=== PATIENT | male | born 1960 | race Caucasian/White ===

== ENCOUNTER 2017-10-13 11:56 | Inpatient (IN) | payer OTHER ==
[~2017-10-13] VITALS: Ht 180.3 cm; Wt 127.9 kg
[2017-10-13] VITALS (8 sets, daily range): BP systolic 99–161; BP diastolic 67–136
--- NOTE | ~2017-10-13 | EKG ---
[address] [address] ELECTROCARDIOGRAM REPORT Name: NELLIBELL BEBO Room #: 247-P ADM IN M.R.#: [id number] Admission: 10/13/17 Attend Phys: Hemant Obrien MD Discharge: Date of : 62 Report #: [id number] THIS REPORT FOR: //name// [facility] ED Test Date: 2017-10-13 Test Time: 11:57:54 Pat Name: BELL AIKEN Department: Room: [facility] Gender: M Machines Technician: jreif : 1960 Requested By: Shannon Chavez Order Number: [id number] MD: Lars Garza Measurements Intervals [place] Rate: 140 P: 63 WY: 208 QRS: 46 QRSD: 159 T: 142 QT: 346 QTc: 528 Interpretive Statements Probable atrial fibrillation with a rapid ventricular response Left bundle branch block Compared to ECG 09/25/2014 18:37:50 Premature ventricular complexes are no longer present Electronically Signed On 10-13-2017 17:21:59 CDT by Lars Garza [email or web address] <ELECTRONICALLY SIGNED> By: Lars Garza MD, [facility] 10/13/17 1721 1157 1157 Lars Garza MD, [facility] /EPI
--- NOTE | ~2017-10-13 | EKG ---
[address] [address] ELECTROCARDIOGRAM REPORT Name: BELL AIKEN Room #: 247- ADM IN M.R.#: [id number] Admission: 10/13/17 Attend Phys: Hemant Obrien MD Discharge: Date of : 62 Report #: [id number] THIS REPORT FOR: //name// [facility] Test Date: 2017-10-14 Test Time: 09:34:12 Pat Name: BELL AIKEN Department: Room: 247 Gender: M Qa Automation Architect: BS : 1960 Requested By: Lars Garza Order Number: [id number] MD: Lars Garza Measurements Intervals [place] Rate: 125 P: 49 WY: 179 QRS: 3 QRSD: 157 T: 136 QT: 395 QTc: 570 Interpretive Statements Sinus tachycardia with atrial premature complexes LBBB Electronically Signed On 10-14-2017 9:48:56 CDT by Lars Garza [email or web address] <ELECTRONICALLY SIGNED> By: Lars Garza MD, [facility] 10/14/17 0948 0934 0934 Lars Garza MD, FAC /EPI
--- NOTE | ~2017-10-13 | 2DMMODE ---
[facility] [address] [address] 2 D/M-MODE ECHOCARDIOGRAM Name: BELL AIKEN Room #: 247-P ADM IN M.R.#: [id number] Admission: 10/13/17 Attend Phys: Hemant Obrien MD Discharge: Date of : 62 Date of Service: 10/14/17 1003 Report #: [id number] THIS REPORT FOR: //name// APPROVED REPORT Study performed: 10/14/2017 08:12:49 EXAM: Comprehensive 2D, Doppler, and color-flow Echocardiogram Patient Location: ICU Room #: [facility] Status: routine BSA: 2.42 BP: 118/73 mmHg Other Information Study Quality: Technically Limited Technically limited study due to body habitus. No IV access for Optison. Indications Congestive Heart Failure Diabetes Atrial Fibrillation Hypertension/HDD Hx of nonischemic cardiomyopathy. 2D Dimensions RVDd: 49.30 mm LVEF(%): 30.79 (>50%) IVSd: 11.43 (7-11mm) LVOT Diam: 23.78 (18-24mm) LVDd: 60.15 mm PWd: 11.05 (7-11mm) Ascending Ao: 32.36 (22-36mm) LVDs: 51.26 (25-40mm) Aortic Root: 35.19 mm IVC: 19.00 mm Blevins's LVEF: 30.79 % Volumes Left Atrial Volume (Systole) Single Plane 4CH: 95.26 mL Single Plane 2CH: 119.12 mL LA ESV Index: 50.00 mL/m2 Aortic Valve AoV Peak Gerald.: 0.97 m/s AO Peak Gr.: 3.78 mmHg LVOT Max P.98 mmHg LVOT Max V: 0.86 m/s [facility] [place] [address] 2 D/M-MODE ECHOCARDIOGRAM Name: CONRADMARCIABELL BASURTO Room #: 247-P ADM IN M.R.#: [id number] Admission: 10/13/17 Attend Phys: Hemant Obrien MD Discharge: Date of : 62 Date of Service: 10/14/17 1003 Report #: [id number] [id number] Vmax: 3.94 cm2 Mitral Valve MV Decel. Time: 100.29 ms MV E Max Gerald.: 1.09 m/s IVRT: 65.74 ms Pulmonary Valve PV Peak Gerald.: 0.80 m/s PV Peak Gr.: 2.55 mmHg Tricuspid Valve TR Peak Gerald.: 2.96 m/s RAP Estimate: 5.00 mmHg TR Peak Gr.: 35.01 mmHg PA Pressure: 40.00 mmHg Left Ventricle Left ventricle is dilated. There is global hypokinesis of the left ventricle. There is normal left ventricular wall thickness. Left ventricular systolic function is moderately decreased. LVEF is 30-35%. Right Ventricle The right ventricle is normal size. Atria Left atrium is severely dilated. Right atrium is severely dilated. Aortic Valve The aortic valve is normal in structure. No aortic regurgitation is present. There is no aortic valvular stenosis. Mitral Valve The mitral valve is normal in structure. Mild to moderate eccentric mitral regurgitation. No evidence of mitral valve stenosis. Tricuspid Valve Calcification present on anterior tricuspid valve leaflet. Mild tricuspid regurgitation. PAP is estimated at 40 mmHg. Pulmonic Valve Pulmonic valve is not well visualized. Great Vessels The aortic root is normal in size. IVC is normal in size and [facility] [address] [place] [address] 2 D/M-MODE ECHOCARDIOGRAM Name: BELL AIKEN Room #: 247-P ADM IN M.R.#: [id number] Admission: 10/13/17 Attend Phys: Hemant Obrien MD Discharge: Date of : 62 Date of Service: 10/14/17 1003 Report #: [id number] collapses >50% with inspiration. Pericardium There is no pericardial effusion. <Conclusion> Left ventricular systolic function is moderately decreased. LVEF is 30-35%. Both atria are severely dilated. The aortic valve is normal in structure. No aortic regurgitation or stenosis The mitral valve is normal in structure. Mild to moderate eccentric mitral regurgitation. Mild tricuspid regurgitation. Calcified tricuspid leaflet. Pulmonary artery pressure of estimated at 40 mmHg. There is no pericardial effusion. <ELECTRONICALLY SIGNED> By: Lars Garza MD, [facility]ACC 10/14/17 1003 1003 1003 Lars Garza MD, FAC /INF
[~2017-10-13 11:56] MED LIST: ALDACTONE25 MG PO; ALDACTONE50 MG PO; ALEVE220 MG PO; AMARYL OR; AMARYL4 MG PO; ASPIR-LOW81 MG PO; ASPIRIN325 PO; ASPIRIN81 M2 PO; ATENOLOL 25 MG25 M1 PO; ATENOLOL 50MG T50 M1 PO; AUGMENTIN 875875 MG PO; BACITRACIN15 GM TOP; C-500500 MG PO; CARDIZEM CD180 MG PO; CARVEDILOL6.25 MG PO; CLOTRIM ANTIFUN15 GM TP; CLOTRIMAZOLE 1%15 G1 TOP; CONSTULOSE10 GM/152 PO; COREG OR; COZAAR 50 MG TA50 M1 PO; COZAAR 50 MG TA50 M2 PO; DILTIAZEM 24HR120 M2 PO; DILTIAZEM HCL60 MG PO; FUROSEMIDE 80 M80 M1 PO; FUROSEMIDE OR; GLUCOPHAGE1000 MG PO; HYDROCERIN CREA1 JAR TOP; LACTULOSE10 GM/15 M PO; LACTULOSE10 GM/152; LACTULOSE20 GM/30 M PO; LASIX 40 MG TAB40 M2 PO; LASIX 40 MG TAB40 MG PO; LEVEMIR100 UNIT/1 SUBQ; LISINOPRIL10 MG PO; LISINOPRIL2.5 MG PO; LISINOPRIL20 MG PO; LOW DOSE ASPIRI81 M1 PO; MAGOX 400400 MG PO; MULTIVITAMINS1 EAC7 PO; NAPROSYN500 M1 PO; NYSTATIN 100,0015 G1 TOP; NYSTATIN15 GM TOP; NYSTATIN15 GM TP; OXYCODONE HCL 55 MG PO; OXYCODONE HCL5 M1 PO; POTASSIUM20; POTASSIUM20 PO; PREDNISONE 10 M10 MG PO; SPIRONOLACTONE25 M1 PO; TESSALON PERLE100 MG PO; TOPROL XL50 MG PO; TORSEMIDE20 MG PO; TRINATE TABLET1 TAB PO; VITAMIN B-1100 M1 PO; VITAMIN C + RO500 MG PO; VITAMINC500 PO; XIFAXAN 200 MG200 M1 PO; XIFAXAN550 M1 PO; XIFAXAN550 MG PO
[2017-10-13 12:59] LABS: HEMATOCRIT 43.8 % (42.0-52.0); HEMOGLOBIN 15.3 gm/dL (14.0-18.0); MCH 32.1 pg (26.0-34.0); MCHC 34.9 g/dL (28.0-37.0); RBC 4.76 mil/uL (4.50-6.00); RDW 15.6 % (10.5-14.5); WBC 3.3 thou/uL (4.0-11.0)
[2017-10-13 13:10] LABS: CALCIUM 8.5 mg/dL (8.5-10.1); CREATININE 1.9 mg/dL (0.7-1.3); POTASSIUM 3.1 mmol/L (3.5-5.1)
[2017-10-13 13:16] LABS: ALBUMIN 2.6 g/dL (3.4-5.0); TOTAL BILIRUBIN 6.2 mg/dL (<0.1-1.0)
[2017-10-13 13:46] LABS: TOTAL PROTEIN 6.8 g/dL (6.4-8.2)
[2017-10-13 14:03] LABS: INR 1.6; PROTIME 16.6 Seconds (9.3-11.4)
[2017-10-14] VITALS (16 sets, daily range): BP systolic 90–121; BP diastolic 55–99
[2017-10-14 06:15] LABS: HEMATOCRIT 41.5 % (42.0-52.0); HEMOGLOBIN 14.3 gm/dL (14.0-18.0); MCHC 34.5 g/dL (28.0-37.0); MCV 92.8 fL (80.0-100.0); RBC 4.47 mil/uL (4.50-6.00); WBC 4.7 thou/uL (4.0-11.0)
[2017-10-14 06:31] LABS: INR 1.7; PROTIME 17.1 Seconds (9.3-11.4)
[2017-10-14 06:37] LABS: ALBUMIN 2.2 g/dL (3.4-5.0); CALCIUM 7.8 mg/dL (8.5-10.1); CREATININE 1.3 mg/dL (0.7-1.3); POTASSIUM 3.6 mmol/L (3.5-5.1); TOTAL BILIRUBIN 4.9 mg/dL (<0.1-1.0); TOTAL PROTEIN 5.9 g/dL (6.4-8.2)
[2017-10-15 04:19] LABS: INR 1.8; PROTIME 18.7 Seconds (9.3-11.4)
[2017-10-15 04:20] LABS: ALBUMIN 2.3 g/dL (3.4-5.0); DIRECT BILIRUBIN 2.2 mg/dL (<0.1-0.3); TOTAL BILIRUBIN 5.1 mg/dL (<0.1-1.0); TOTAL PROTEIN 6.2 g/dL (6.4-8.2)
[2017-10-15 04:45] VITALS: BP 90/61
[2017-10-15 07:15] VITALS: BP 104/57
[2017-10-15] MEDS ORDERED: XIFAXAN550 MG PO (10:47)
[2017-10-15] MEDS ORDERED: CARDIZEM CD 18180 M3 PO (10:47)
[2017-10-15] MEDS ORDERED: LOPRESSOR50 PO (10:47)
[2017-10-15 11:15] VITALS: BP 120/55
[2017-10-15 14:48] VITALS: BP 120/55
== END 2017-10-15 15:26 | disposition home or self-care (01) | DRG 871 ==
LOC: ER 11:56 → EROBS 15:07 → ICU 15:07 → 2N 10-14 15:50 → ENTRNSPT 10-15 15:16 → EDTRNSPTSTS 10-15 15:18 → 2N 10-15 15:26
PROVIDERS: Hospitalist; Internal Medicine Gastroenterology; Student in an Organized Health Care Education/Training Program
DX: A41.9 Sepsis, unspecified organism (principal); E43 Unspecified severe protein-calorie malnutrition; K72.00 Acute and subacute hepatic failure without coma; I85.10 Secondary esophageal varices without bleeding; N17.9 Acute kidney failure, unspecified; K76.6 Portal hypertension; N13.30 Unspecified hydronephrosis; I47.1 Supraventricular tachycardia; E11.9 Type 2 diabetes mellitus without complications; I11.0 Hypertensive heart disease with heart failure; B18.2 Chronic viral hepatitis C; I48.0 Paroxysmal atrial fibrillation; K80.20 Calculus of gallbladder without cholecystitis without obstruction; E78.5 Hyperlipidemia, unspecified; K70.31 Alcoholic cirrhosis of liver with ascites; I25.5 Ischemic cardiomyopathy; R59.0 Localized enlarged lymph nodes; I50.9 Heart failure, unspecified; Z79.4 Long term (current) use of insulin; Z68.39 Body mass index [BMI] 39.0-39.9, adult; Z79.82 Long term (current) use of aspirin; Z79.899 Other long term (current) drug therapy; Z88.8 Allergy status to other drugs, medicaments and biological substances
CPT/HCPCS: 10078; 10081

== ENCOUNTER 2019-01-01 15:53 | Inpatient (IN) | payer OTHER ==
[2019-01-01] VITALS (8 sets, daily range): BP systolic 99–117; BP diastolic 43–77
[~2019-01-01] VITALS: Ht 177.8 cm; Wt 104.3 kg
[~2019-01-01 15:53] MED LIST changes: +CARDIZEM CD 18180 M3 PO; +LOPRESSOR50 PO
[2019-01-01 16:38] LABS: HEMATOCRIT 41.5 % (42.0-52.0); HEMOGLOBIN 13.9 gm/dL (14.0-18.0); MCH 33.9 pg (26.0-34.0); MCHC 33.6 g/dL (28.0-37.0); MCV 100.9 fL (80.0-100.0); PLATELET COUNT 152 thou/uL (150-400); RBC 4.11 mil/uL (4.50-6.00); RDW 17.2 % (10.5-14.5); WBC 12.2 thou/uL (4.0-11.0)
[2019-01-01 16:44] LABS: ANION GAP 10 mmol/L (7-16); BUN 18 mg/dL (7-18); CALCIUM 8.5 mg/dL (8.5-10.1); CHLORIDE 89 mmol/L (98-107); CO2 29 mmol/L (21-32); CREATININE 1.5 mg/dL (0.7-1.3); GLUCOSE 244 mg/dL (74-106); POTASSIUM 3.1 mmol/L (3.5-5.1); SODIUM 128 mmol/L (136-145)
[2019-01-01 16:53] LABS: ALBUMIN 1.8 g/dL (3.4-5.0); DIRECT BILIRUBIN 5.6 mg/dL (<0.1-0.3); SGOT 52 U/L (15-37); SGPT 22 U/L (30-65); TOTAL BILIRUBIN 9.4 mg/dL (<0.1-1.0); TOTAL PROTEIN 7.4 g/dL (6.4-8.2); TROPONIN-I <0.06 ng/mL (<0.06)
[2019-01-01 16:55] LABS: MAGNESIUM 0.9 mg/dL (1.8-2.4)
[2019-01-01 16:56] LABS: PROTIME 20.4 Seconds (9.3-11.4)
[2019-01-01 17:15] LABS: ABSOLUTE NEUTROPHILS 11.2 thou/uL (1.4-8.2); ANISOCYTOSIS SLIGHT; POIKILOCYTOSIS SLIGHT
[2019-01-01 17:16] LABS: TOXIC GRANULATION SLIGHT
[2019-01-01] MEDS ORDERED: NEURONTIN100 MG PO (19:28)
[2019-01-01] MEDS ORDERED: TOPROL XL100 MG PO (19:29)
[2019-01-01] MEDS ORDERED: ZANTAC 150MG T150 M1 PO (19:29)
--- NOTE | 2019-01-01 20:14 | NUR ---
VAT CONSULTED FOR A PICC IN THE ER FOR THIS PT FOR POSS SEPSIS AND CARDIAC ISSUES. A 5FRTLPICC PLACED IN [facility] AND CXR REVEALED TIP AT THE [facility] AND RELEASED TO RN FOR USE. PLEASE SEE INSERTION NI FOR DETAILS
[2019-01-02] VITALS (61 sets, daily range): BP systolic 79–124; BP diastolic 36–78
[2019-01-02 01:22] LABS: MAGNESIUM 1.6 mg/dL (1.8-2.4); POTASSIUM 3.1 mmol/L (3.5-5.1)
[2019-01-02 06:18] LABS: HEMATOCRIT 30.6 % (42.0-52.0); MCH 34.6 pg (26.0-34.0); MCHC 33.9 g/dL (28.0-37.0); MCV 102.1 fL (80.0-100.0); RBC 2.99 mil/uL (4.50-6.00); RDW 17.4 % (10.5-14.5); WBC 9.3 thou/uL (4.0-11.0)
[2019-01-02 06:21] LABS: INR 1.9; PROTIME 19.3 Seconds (9.3-11.4)
[2019-01-02 06:26] LABS: ALBUMIN 1.4 g/dL (3.4-5.0); ANION GAP 3 mmol/L (7-16); BUN 15 mg/dL (7-18); CALCIUM 7.5 mg/dL (8.5-10.1); CHLORIDE 94 mmol/L (98-107); CO2 33 mmol/L (21-32); CREATININE 1.1 mg/dL (0.7-1.3); GLUCOSE 204 mg/dL (74-106); POTASSIUM 3.1 mmol/L (3.5-5.1); SGOT 34 U/L (15-37); SGPT 11 U/L (30-65); SODIUM 130 mmol/L (136-145); TOTAL BILIRUBIN 9.3 mg/dL (<0.1-1.0); TOTAL PROTEIN 5.5 g/dL (6.4-8.2); TROPONIN-I <0.06 ng/mL (<0.06)
[2019-01-02 06:34] LABS: HEMOGLOBIN 10.4 gm/dL (14.0-18.0)
--- NOTE | 2019-01-02 09:26 | EKG ---
[address] [place] [address] ELECTROCARDIOGRAM REPORT Name: BELL AIKEN Room #: 238-P ADM IN M.R.#: [id number] Admission: 01/01/19 Attend Phys: Ra Bradford MD Discharge: Date of : 62 Report #: [id number] THIS REPORT FOR: //name// [facility] ED Test Date: 2019-01-01 Test Time: 16:06:58 Pat Name: BELL AIKEN Department: Room: 238 Gender: M Remote Sensing Analyst: : 1960 Requested By: Madhu De Guzman Order Number: [id number] MD: Lars Garza Measurements Intervals [place] Rate: 167 P: [place]: QRS: 6 QRSD: 153 T: 149 QT: 324 QTc: 541 Interpretive Statements Atrial fibrillation with a rapid ventricular response Left bundle branch block No previous ECGs available for comparison Electronically Signed On 01-02-2019 9:26:27 CDT by Lars Garza [email or web address] <ELECTRONICALLY SIGNED> By: Lars Garza MD, [facility] 01/02/19 0926 1606 1606 Lars Garza MD, [facility]ACC /EPI
--- NOTE | 2019-01-02 09:27 | EKG ---
[address] [address] ELECTROCARDIOGRAM REPORT Name: BELL AIKEN Room #: 238-P ADM IN M.R.#: [id number] Admission: 01/01/19 Attend Phys: Ra Bradford MD Discharge: Date of : 62 Report #: [id number] THIS REPORT FOR: //name// [facility] ED Test Date: 2019-01-01 Test Time: 16:39:34 Pat Name: BELL AIKEN Department: Room: 238 P Gender: M Marketing Education Teacher: : 1960 Requested By: Madhu De Guzman Order Number: [id number] MD: Lars Garza Measurements Intervals [place] Rate: 171 P: [place]: QRS: 15 QRSD: 158 T: 179 QT: 285 QTc: 481 Interpretive Statements Atrial fibrillation with a rapid ventricular response Left bundle-branch block Compared to ECG 10/14/2017 09:34:12 No previous ECGs available for comparison Electronically Signed On 01-02-2019 9:26:49 CDT by Lars Garza [email or web address] <ELECTRONICALLY SIGNED> By: Lars Garza MD, [facility] 01/02/19 0926 1639 1639 Lars Garza MD, [facility] /EPI
--- NOTE | 2019-01-02 09:35 | 2DMMODE ---
[facility] [address] [place] [address] 2 D/M-MODE ECHOCARDIOGRAM Name: BELL AIKEN Room #: 238-P ADM IN M.R.#: [id number] Admission: 01/01/19 Attend Phys: Ra Bradford Discharge: Date of : 62 Report #: [id number] THIS REPORT FOR: //name// APPROVED REPORT Study performed: 01/02/2019 08:03:24 EXAM: Comprehensive 2D, Doppler, and color-flow Echocardiogram Patient Location: Bedside Room #: 238 Status: routine BSA: 2.37 HR: 128 bpm BP: 108/67 mmHg Other Information Study Quality: Technically Difficult Indications Congestive Heart Failure Diabetes Cardiomyopathy Hypertension/HDD Echo Enhancing Agent Indication: Endocardial border delineation Agent(s) / Amount(s) Used: Optison 3 cc 2D Dimensions RVDd: 39.14 mm IVSd: 9.24 (7-11mm) LVOT Diam: 20.04 (18-24mm) LVDd: 52.11 mm PWd: 10.30 (7-11mm) Ascending Ao: 30.95 (22-36mm) LVDs: 49.17 (25-40mm) Aortic Root: 33.29 mm IVC: 19.00 mm Volumes Left Atrial Volume (Systole) Single Plane 4CH: 68.31 mL Single Plane 2CH: 120.25 mL LA ESV Index: 41.00 mL/m2 Aortic Valve AoV Peak Gerald.: 1.52 m/s AO Peak Gr.: 9.22 mmHg LVOT Max P.37 mmHg [facility] [address] [place] [address] 2 D/M-MODE ECHOCARDIOGRAM Name: BELL AIKEN Room #: 238-P [facility] IN [facility]#: [id number] Admission: 01/01/19 Attend Phys: Ra Bradford Discharge: Date of : 62 Report #: [id number] LVOT Max V: 1.16 m/s GEORGE Vmax: 2.41 cm2 Mitral Valve MV Decel. Time: 156.18 ms MV E Max Gerald.: 1.37 m/s IVRT: 41.52 ms Pulmonary Valve PV Peak Gerald.: 0.95 m/s PV Peak Gr.: 3.61 mmHg Tricuspid Valve RAP Estimate: 5.00 mmHg Left Ventricle Left ventricle is mildly dilated. There is normal left ventricular wall thickness. Left ventricular systolic function is moderately decreased. LVEF is 35%. This study is not technically sufficient to allow evaluation of the LV diastolic function due to atrial fibrillation. Right Ventricle Right ventricle is at the upper limits of normal. The right ventricular systolic function is normal. Atria Left atrium is severely dilated. Right atrium is mildly dilated. Aortic Valve The aortic valve is normal in structure. No aortic regurgitation is present. There is no aortic valvular stenosis. Mitral Valve The mitral valve is normal in structure. Mild to moderate eccentric mitral regurgitation. No evidence of mitral valve stenosis. Tricuspid Valve Calciication present on anterior tricuspid valve leaflet. Trace tricuspid regurgitation. Unable to assess PA pressure. Pulmonic Valve The pulmonary valve is normal in structure. There is no pulmonic valvular regurgitation. [facility] [address] [address] 2 D/M-MODE ECHOCARDIOGRAM Name: BELL AIKEN Room #: 238-P [facility] IN ..#: [id number] Admission: 01/01/19 Attend Phys: Ra Bradford Discharge: Date of : 62 Report #: [id number] Great Vessels The aortic root is normal in size. IVC is normal in size and collapses >50% with inspiration. Pericardium There is no pericardial effusion. <Conclusion> Left ventricular systolic function is moderately decreased. LVEF is 35%. Both atria are dilated. The aortic valve is normal in structure. No aortic regurgitation or stenosis. The mitral valve is normal in structure. Mild to moderate eccentric mitral regurgitation. Unable to assess PA pressure. There is no pericardial effusion. Similar to October 2017 <ELECTRONICALLY SIGNED> By: Lars Garza MD, [facility] 01/02/1935 0935 Lars Garza MD, FACC /INF
[2019-01-02 12:29] LABS: BE(vivo) 1.9 mmol/L (-2 to +3); PCO2 44.4 mmHg (35.0-45.0); PO2 82.6 mmHg (80.0-100.0); pH 7.402 (7.360-7.450); sO2 96.1 % (92.0-98.0)
--- NOTE | 2019-01-02 15:52 | NUR ---
met with patient who resides alone in [employer]. He has new PCP but cannot recall her name. He reports she is located in [place] and new to him but believes she is listed on his insurance card. He reports recently purchased a walker. He rec disability. Reports he fell at home and too weak to get up from seated position on floor. Patient called 911. He reports weakness likly due to lack of excercise. He has a GI phys Thi quiroga [phone] who he saw last year. Patient anticipates dc home from [facility].
--- NOTE | 2019-01-02 17:08 | EKG ---
[address] [place] [address] ELECTROCARDIOGRAM REPORT Name: BELL AIKEN Room #: 238- ADM IN M.R.#: [id number] Admission: 01/01/19 Attend Phys: Ra Bradford MD Discharge: Date of : 62 Report #: [id number] THIS REPORT FOR: //name// [facility] Test Date: 2019-01-02 Test Time: 07:35:07 Pat Name: BELL AIKEN Department: Room: 238 P Gender: M Pricing Supervisor: Maryana [place] : 1960 Requested By: Eugene Aguilar Order Number: [id number] MD: Lars Garza Measurements Intervals [place] Rate: 133 P: 0 DE: 41 QRS: 24 QRSD: 163 T: 149 QT: 370 QTc: 551 Interpretive Statements Probable atrial flutter with a rapid ventricular response Left bundle branch block Compared to ECG 10/14/2017 09:34:12 No significant changes Electronically Signed On 01-02-2019 17:08:39 CDT by Lars Garza [email or web address] <ELECTRONICALLY SIGNED> By: Lars Garza MD, [facility] 01/02/19 1708 0735 0735 Lars Garza MD, [facility] /EPI
[2019-01-03] VITALS (18 sets, daily range): BP systolic 86–111; BP diastolic 43–74
[2019-01-03 06:22] LABS: ALBUMIN 1.8 g/dL (3.4-5.0); CALCIUM 7.2 mg/dL (8.5-10.1); CREATININE 1.5 mg/dL (0.7-1.3); MAGNESIUM 1.7 mg/dL (1.8-2.4); POTASSIUM 3.4 mmol/L (3.5-5.1); TOTAL PROTEIN 5.5 g/dL (6.4-8.2)
--- NOTE | 2019-01-03 08:04 | NUR ---
Pt up to bs commode during noc-loose stools/voids in toilet. Amniona level down this am. Map >60. levophed off. and Atrial tachycardia HR below 110. Pt states he feels better. Pt progressing toward goals. Cont plan of care
--- NOTE | 2019-01-03 09:12 | NUR ---
Blood sugars remain high w/ Lantus 10u hs and moderate dose SSC ac. SSC increased to high dose per protocol. Pt on 2gm BRIDGET diet. Will ask primary for carb control diet and whether lantus dose should be adjusted as well. Pt states he does not need to see an Data Capture Clerk because when he leaves here he is going to eat/drink what he wants. Pt states his sugars are always in the 300's.
--- NOTE | 2019-01-03 13:56 | EKG ---
[address] [address] ELECTROCARDIOGRAM REPORT Name: BELL AIKEN Room #: 238-P ADM IN M.R.#: [id number] Admission: 01/01/19 Attend Phys: Ra Bradford MD Discharge: Date of : 62 Report #: [id number] THIS REPORT FOR: //name// [facility] Test Date: 2019-01-03 Test Time: 07:32:42 Pat Name: BELL AIKEN Department: Room: 238 P Gender: M Splash Line Operator: JAIMEE : 1960 Requested By: Lars Garza Order Number: [id number] MD: Geronimo Thompson Measurements Intervals [place] Rate: 108 P: [place]: QRS: -9 QRSD: 175 T: 164 QT: 440 QTc: 590 Interpretive Statements Atrial flutter with predominant 2:1 AV block LBBB Compared to ECG 01/02/2019 07:35:07 Electronically Signed On 01-03-2019 13:56:05 CDT by Geronimo Thompson [email or web address] <ELECTRONICALLY SIGNED> By: Geronimo Thompson MD 01/03/19 1356 1 1 Geronimo Thompson MD /EDYTA
[2019-01-03 14:38] LABS: POTASSIUM 3.6 mmol/L (3.5-5.1)
--- NOTE | 2019-01-03 18:23 | NUR ---
Blood sugars better this evening, down to 171 pre dinner. No critical care tele bed available at this time for pt transfer. PT/OT both worked with patient today. Pt up in chair most of day, transfer with one assist. Slowly making progress with improved strength and endurance.
[2019-01-04] VITALS (12 sets, daily range): BP systolic 91–137; BP diastolic 38–112
[2019-01-04 06:19] LABS: ALBUMIN 2.1 g/dL (3.4-5.0); CALCIUM 7.3 mg/dL (8.5-10.1); CREATININE 1.8 mg/dL (0.7-1.3); MAGNESIUM 1.7 mg/dL (1.8-2.4); POTASSIUM 3.4 mmol/L (3.5-5.1); TOTAL PROTEIN 5.9 g/dL (6.4-8.2)
--- NOTE | 2019-01-04 10:51 | NUR ---
Nutrition: Pt admitted with sepsis, afib, RVR. Hx liver disease TIPS, NIDDM, CHF, noncompliance. Seen per sepsis Dx. RN added carb controlled to diet order and insulin increased to high dose plus lantus this am due to hyperglycemia. BG now 133-233. Also on 2 gm Na diet with liver hx. Pt reported to RN that BG run in 300s at home and plans to eat/drink whatever he wants at home. Excellent appetite, 100% intake of meals. Plan to transfer out of ICU today. Physician has documented severe malnutrition-will defer. Pt reports stable weights around 280#. Most recent weight of 229# is error. RD will remain available as needed but place as low risk.
--- NOTE | 2019-01-04 11:59 | NUR ---
HR down to 40's while sleeping after Lopressor, Cardizem, and digoxin given this am. BP stable. Pt denies complaints.
--- NOTE | 2019-01-04 13:49 | NUR ---
Dr. Garza's office called and notified for sustained HR 42. PT lynne well. BP 90's. Pt states he just feels wiped out.
--- NOTE | 2019-01-04 14:10 | NUR ---
Serena GUERRA from Dr. Garza's office returned call. Update given. Digoxin dc'd. Will hold evening dose Lopressor. Normal Saline 250ml slow IV bolus. Will hold spironolactone.
--- NOTE | 2019-01-04 15:00 | NUR ---
Pt attempting to get to bedside commode for BM. Chair alarm activated. Assisted to bedside commode but too late. Pt states lactulose make his stools come on quick. Sweat pants soiled. Bath given. Gown changed.
--- NOTE | 2019-01-04 17:36 | EKG ---
[address] [address] ELECTROCARDIOGRAM REPORT Name: BELL AIKEN Room #: 238-P ADM IN M.R.#: [id number] Admission: 01/01/19 Attend Phys: Ra Bradford MD Discharge: Date of : 62 Report #: [id number] THIS REPORT FOR: //name// [facility] Test Date: 2019-01-04 Test Time: 08:37:03 Pat Name: BELL AIKEN Department: Room: 238 P Gender: M Associate Buyer: JAIMEE : 1960 Requested By: Katrina Palencia Order Number: [id number] MD: Lars Garza Measurements Intervals [place] Rate: 121 P: [place]: QRS: 34 QRSD: 161 T: 128 QT: 427 QTc: 606 Interpretive Statements Atrial flutter Left bundle branch block Compared to ECG 01/03/2019 07:32:42 No significant change was found Electronically Signed On 01-04-2019 17:35:57 CDT by Lars Garza [email or web address] <ELECTRONICALLY SIGNED> By: Lars Garza MD, [facility] 01/04/19 1735 0837 0837 Lars Garza MD, FAC /EPI
--- NOTE | 2019-01-04 17:52 | NUR ---
HR back up to 60-80s while awake. Afib. BP stable 90's-110 Systolic.
--- NOTE | 2019-01-04 19:06 | NUR ---
Critical Care Tele bed available on 3W. Pt to transfer to room 352 once clean. Report called to Aurelio RN on 3W. Pt packed up and anxious to transfer to new room with private bathroom. Cell phone charged for patient and returned. Update to Tammy RODRIGUEZ who will transport pt to 3W when ready.
--- NOTE | 2019-01-04 20:28 | NUR ---
PT REMAIN STABLE WHILE IN ICU. TRANSFER TO ROOM 364 ACCOMPANIED BY ME. ALL BELONGING ARE SENT WITH PT.
[2019-01-05 00:04] VITALS: BP 93/55
--- NOTE | 2019-01-05 04:21 | NUR ---
PT MAKING PROGRESS TOWARDS GOALS. PT UP TO TOILET ON ROOM AIR. NO REPORTS OF SOA WITH ACTIVITY. LUNGS DIMINISHED BUT CLEAR. NON-PRODUCTIVE COUGH.
[2019-01-05 05:10] VITALS: BP 101/61
[2019-01-05 06:20] LABS: MAGNESIUM 1.6 mg/dL (1.8-2.4); POTASSIUM 3.7 mmol/L (3.5-5.1)
[2019-01-05 07:35] LABS: CALCIUM 7.4 mg/dL (8.5-10.1); CREATININE 1.8 mg/dL (0.7-1.3); POTASSIUM 3.7 mmol/L (3.5-5.1)
[2019-01-05 08:03] VITALS: BP 101/61
[2019-01-05 15:38] VITALS: BP 89/56
--- NOTE | 2019-01-05 15:54 | NUR ---
SW reviewed chart and spoke with nursing and attending physician. Pt was transferred to 3W from CCU and is progressing towards goals for discharge. Discharge is anticipated for tomorrow. Therapy recommends post-acute placement. SW met with pt at bedside to discuss discharge plan. Pt states he will return home and does not want to go to SNF/Rehab. Pt is agreeable with HH if needed. SW is following to assist as needed with discharge planning.
[2019-01-05 19:27] VITALS: BP 90/54
--- NOTE | 2019-01-05 19:35 | NUR ---
PT UP TO CHAIR MOST OF DAY, ON 1 L NC. PT AOX4. APPROPRIATE WITH THIS RN.
[2019-01-06 03:00] VITALS: BP 98/72
--- NOTE | 2019-01-06 04:17 | NUR ---
ASSUMED CARE OF PATIENT AT 1900. VSS, AFEBRILE. UP TO CHAIR UNTIL READY FOR BED. IV TEAM TO FLOOR AND ADMINISTERED ACTIVASE. NO RESULTS, GIVEN ONCE MORE. FLUSHES WELL AND DRAWING BLOOD. RESTLESS, COUGHING AND UNCOMFORTABLE THROUGH THE NIGHT. THROAT LOZENGES ORDERED. SOME RELIEF NOTED. WORKING TOWARDS POC GOALS.
[2019-01-06 08:09] VITALS: BP 99/48
--- NOTE | 2019-01-06 15:36 | NUR ---
ASSUMED CARE OF PATIENT AT 0700. VSS. CONTROLLED AFIB. ALERT AND ORIENTED X 4. PATIENT HAS NONPRODUCTIVE COUGH. PATIENT TOLERATING IV ANTIBIOTICS WELL. PATIENT HAS NOT REPORTED ANY PAIN. CONTINUING TO MONITOR AND ANTICIPATING DISCHARGE IN NEAR FUTURE.
--- NOTE | 2019-01-06 15:42 | NUR ---
DAPHNE reviewed chart and spoke with nursing and attending physician. Pulmonology consult ordered today. Pt may need a bronch. DAPHNE met with pt at bedside to discuss discharge plan. Pt is agreeable with services. Pt states his PCP is in [place] and he has an appt scheduled on 01/30. Pt does not know the name of his PCP. No preference of HH provider. SW contacted admissions at [facility] and [facility], who both do not accept pt's insurance. sr. merchandise planner to fax referral to [facility]. Possible weekend discharge. DAPHNE is following to assist as needed with discharge planning.
--- NOTE | 2019-01-06 16:04 | NUR ---
DISCHARGE PLANNING. HOME HEALTH RECOMMENDED AT DISCHARGE. REFERRAL FA[facility]ED TO [facility]. CALL PLACED TO [facility], SPOKE WITH FREDDIE. VERIFIED [facility] DOES CONTRACT WITH PATIENTS PROVIDER. FREDDIE TO HAVE INTAKE REVIEW PATIENT REFERRAL AND NOTIFY CM.
[2019-01-06 16:06] VITALS: BP 96/54
--- NOTE | 2019-01-06 18:42 | NUR ---
TRANSFERRED PATIENT TO 4W AT APPROX 1840. REPORT GIVEN TO 4W RN AT APPROX 1830. VSS. ROOM AIR. ALERT AND ORIENTED X4. BELONGINGS SENT WITH PATIENT.
--- NOTE | 2019-01-06 19:32 | NUR ---
Patient transfered to this unit at 1835. Patient welcomed to the unit, introduced to staff. Patient fell asleep immediately after arrival to this unit. He is resting. comfortably with his eyes closed. On-coming nurse, MICHAEL Dick recieved report from this nurse.
[2019-01-06 20:20] VITALS: BP 100/60
[2019-01-07 08:00] VITALS: BP 116/72
[2019-01-07] MEDS ORDERED: CARDIZEM CD 18180 M3 PO (14:01)
[2019-01-07] MEDS ORDERED: PREDNISONE 20 M20 M1 PO (14:01)
[2019-01-07] MEDS ORDERED: AUGMENTIN 875-1 EACH PO (14:06)
[2019-01-07 14:57] VITALS: BP 116/72
--- NOTE | 2019-01-07 16:26 | NUR ---
Assumed pt care at 7am.Assessment completed.vss.Pt in bed very anxious about dc home today.He said has been hospitalized for the past 5 day and would like to dc home today after lunch.Pt tolerated meds and diet.Dr Bhatia and ehsan here okay pt to dc home but wanted Dr Palencia to finalized dc order.Dr Palencia notified and dc order noted.Dc summary compile and reviewed with pt.Picc line dc'd.At 1615,pt dc per wc accompanied by combat systems operator after pt called yellow [employer] for ride home.[facility] and given to pt prior to dc home.
== END 2019-01-07 16:33 | disposition home or self-care (01) | DRG 871 ==
LOC: ER 15:53 → EROBS 18:01 → ICU 18:01 → 3W 01-04 20:35 → 4W 01-06 18:14
PROVIDERS: Emergency Medicine; Hospitalist; Internal Medicine; Nurse Practitioner Acute Care; ADMIT Internal Medicine
DX: A41.50 Gram-negative sepsis, unspecified (principal); E43 Unspecified severe protein-calorie malnutrition; J15.6 Pneumonia due to other Gram-negative bacteria; I42.8 Other cardiomyopathies; E87.1 Hypo-osmolality and hyponatremia; N17.9 Acute kidney failure, unspecified; I47.1 Supraventricular tachycardia; R65.20 Severe sepsis without septic shock; E87.6 Hypokalemia; K74.60 Unspecified cirrhosis of liver; I50.9 Heart failure, unspecified; I95.9 Hypotension, unspecified; E83.42 Hypomagnesemia; F17.220 Nicotine dependence, chewing tobacco, uncomplicated; R59.0 Localized enlarged lymph nodes; I48.0 Paroxysmal atrial fibrillation; K72.90 Hepatic failure, unspecified without coma; Z60.2 Problems related to living alone; R91.1 Solitary pulmonary nodule; E11.65 Type 2 diabetes mellitus with hyperglycemia; D53.9 Nutritional anemia, unspecified; E83.51 Hypocalcemia; D86.9 Sarcoidosis, unspecified; Z91.14 Patient's other noncompliance with medication regimen; Z95.810 Presence of automatic (implantable) cardiac defibrillator; Z88.6 Allergy status to analgesic agent; Z88.8 Allergy status to other drugs, medicaments and biological substances; Z68.33 Body mass index [BMI] 33.0-33.9, adult; Z71.6 Tobacco abuse counseling
CPT/HCPCS: 10047; 10078; 10779; 10879; 27000

== ENCOUNTER 2019-01-11 08:25 | Inpatient (IN) | payer OTHER ==
[~2019-01-11] VITALS: Ht 177.8 cm; Wt 139.5 kg
[2019-01-11 08:25] VITALS: BP 118/67
[~2019-01-11 08:25] MED LIST changes: +AUGMENTIN 875-1 EACH PO; +NEURONTIN100 MG PO; +PREDNISONE 20 M20 M1 PO; +TOPROL XL100 MG PO; +ZANTAC 150MG T150 M1 PO
[2019-01-11 09:02] LABS: ABSOLUTE NEUTROPHILS 11.3 thou/uL (1.4-8.2); BASOPHILS 0.6 % (0.0-2.0); EOSINOPHILS 0.5 % (0.0-3.0); HEMATOCRIT 33.7 % (42.0-52.0); LYMPHOCYTES 2.4 % (24.0-44.0); MCH 34.6 pg (26.0-34.0); MCHC 32.6 g/dL (28.0-37.0); MCV 106.1 fL (80.0-100.0); PLATELET COUNT 122 thou/uL (150-400); POLYS 91.5 % (36.0-66.0); RBC 3.17 mil/uL (4.50-6.00); RDW 20.4 % (10.5-14.5); WBC 12.3 thou/uL (4.0-11.0)
[2019-01-11 09:13] LABS: CALCIUM 9.3 mg/dL (8.5-10.1); CREATININE 0.9 mg/dL (0.7-1.3); POTASSIUM 4.2 mmol/L (3.5-5.1)
[2019-01-11 09:14] LABS: INR 2.2; PROTIME 22.7 Seconds (9.3-11.4)
[2019-01-11 09:32] LABS: ALBUMIN 2.2 g/dL (3.4-5.0); DIRECT BILIRUBIN 9.3 mg/dL (<0.1-0.3); TOTAL PROTEIN 6.3 g/dL (6.4-8.2)
[2019-01-11 09:34] LABS: TOTAL BILIRUBIN 14.1 mg/dL (<0.1-1.0)
[2019-01-11 10:04] LABS: ANISOCYTOSIS 2+; MACROCYTES 1+; PLATELET ESTIMATE NORMAL
[2019-01-11 11:06] LABS: URINE BILIRUBIN 3+ (Negative); URINE BLOOD 2+ (Negative); URINE CLARITY CLEAR; URINE GLUCOSE-RANDOM* 1+ (Negative); URINE KETONES NEGATIVE (Negative); URINE LEUKOCYTES-REFLEX TRACE (Negative); URINE NITRITE-REFLEX NEGATIVE (Negative); URINE PROTEIN (DIPSTICK) TRACE (Negative); URINE SPECIFIC GRAVITY 1.025 (1.005-1.035); URINE UROBILINOGEN 0.2 E.U./dl (0.2-1.0)
[2019-01-11 11:08] LABS: ICTOTEST (BILI CONFIRMATORY) Positive (Negative); URINE COLOR DARK YELLOW
[2019-01-11 11:19] LABS: CRYSTALS None Seen /LPF (None Seen); SQUAMOUS None Seen /LPF (0-3)
[2019-01-11 11:20] LABS: URINE RBC 3-10 Few /HPF (0-2)
[2019-01-11 11:23] LABS: CASTS None Seen /LPF (None Seen); YEAST-REFLEX Present (None Seen)
[2019-01-11 13:09] VITALS: BP 104/69
[2019-01-11 13:31] LABS: AMP/METHAMP Negative (Negative); BARBITURATES Negative (Negative); BENZODIAZEPINES Negative (Negative); COCAINE Negative (Negative); METHADONE Negative (Negative); OPIATES Negative (Negative); PCP Negative (Negative)
--- NOTE | 2019-01-11 13:55 | EKG ---
[address] [address] ELECTROCARDIOGRAM REPORT Name: NELLIBELL BEBO Room #: 170-11 ADM IN M.R.#: [id number] Admission: 01/11/19 Attend Phys: Porfirio Abel MD Discharge: Date of : 62 Report #: [id number] THIS REPORT FOR: //name// [facility] ED Test Date: 2019-01-11 Test Time: 08:55:16 Pat Name: BELL AIKEN Department: Room: 170 Gender: M University Archivist: ESHEETS : 1960 Requested By: Madhu De Guzman Order Number: [id number] MD: Geronimo Thompson Measurements Intervals [place] Rate: 139 P: 80 DE: 55 QRS: 229 QRSD: 180 T: 102 QT: 357 QTc: 543 Interpretive Statements Atrial flutter with LBBB Electronically Signed On 01-11-2019 13:55:24 CDT by Geronimo Thompson [email or web address] <ELECTRONICALLY SIGNED> By: Geronimo Thompson MD 01/11/19 1355 0855 0855 MD MAXIMILIANO Duval
[2019-01-11 14:09] VITALS: BP 131/80
[2019-01-11 15:32] VITALS: BP 136/112
--- NOTE | 2019-01-11 16:13 | NUR ---
TO UNIT BY NICANOR FROM [place], REPORT FROM MICHAEL LAWRENCE. AAOX4. CRUDE HUMOR. ST PER TELE. HAND CASTED. ORIENTED TO UNIT. FALL PRECAUTIONS INITIATED. WILL CONTINUE TO MONITOR CLOSELY.
[2019-01-11 19:49] VITALS: BP 90/64
[2019-01-12 00:01] VITALS: BP 87/54
[2019-01-12 00:08] LABS: GLYCOHEMOGLOBIN (HGB A1C) 7.4 % (4.8-5.6)
[2019-01-12 04:44] VITALS: BP 83/53
[2019-01-12 05:26] LABS: ABSOLUTE NEUTROPHILS 6.3 thou/uL (1.4-8.2); BASOPHILS 0.5 % (0.0-2.0); EOSINOPHILS 3.4 % (0.0-3.0); HEMATOCRIT 32.4 % (42.0-52.0); HEMOGLOBIN 10.7 gm/dL (14.0-18.0); LYMPHOCYTES 7.1 % (24.0-44.0); MCH 34.8 pg (26.0-34.0); MCHC 33.1 g/dL (28.0-37.0); MCV 105.1 fL (80.0-100.0); MONOCYTES 8.3 % (1.0-8.0); PLATELET COUNT 133 thou/uL (150-400); POLYS 80.7 % (36.0-66.0); RBC 3.08 mil/uL (4.50-6.00); RDW 19.9 % (10.5-14.5); WBC 7.8 thou/uL (4.0-11.0)
[2019-01-12 05:54] LABS: CALCIUM 8.3 mg/dL (8.5-10.1); CREATININE 0.9 mg/dL (0.7-1.3); POTASSIUM 4.1 mmol/L (3.5-5.1)
--- NOTE | 2019-01-12 06:05 | NUR ---
PATIENTS CARE WAS ASSUMED AT SHIFT CHANGE. PATIENT WAS ASSESSED AND MEDS WERE PASSED. HORLY ROUNDING WAS DONE. THE BED ALARM IS ON. THE BED IS IN A LOW AND LOCKED POSITION. PATIENT IS ON STAND BY ASSESS. PATIENT BELIEVES HE IS GOING FOR AN EGD TODAY. PATIENT HAS BEEN NPO AND NO ORDER WRITTEN AND NO CONSENT TO SIGN OF NOW,
[2019-01-12 06:29] LABS: FOLIC ACID 4.5 ng/mL (8.6-58.9); TSH 4.771 uIU/mL (0.358-3.740)
[2019-01-12 08:09] VITALS: BP 105/69
--- NOTE | 2019-01-12 08:50 | EKG ---
[address] [place] [address] [facility] [place] [address] ELECTROCARDIOGRAM REPORT Name: BELL AIKEN Room #: 215-P ADM IN M.R.#: [id number] Admission: 01/11/19 Attend Phys: Porfirio Abel MD Discharge: Date of : 62 Report #: [id number] THIS REPORT FOR: //name// [facility] Test Date: 2019-01-12 Test Time: 07:57:36 Pat Name: BELL AIKEN Department: Room: 215 P Gender: M Drawstring Knotter: JAIMEE : 1960 Requested By: Lars Garza Order Number: [id number] MD: Lars Garza Measurements Intervals [place] Rate: 104 P: DE: QRS: 32 QRSD: 149 T: 137 QT: 379 QTc: 499 Interpretive Statements Atrial flutter IVCD, consider atypical LBBB Compared to ECG 01/11/2019 08:55:16 Heart rate has slowed Electronically Signed On 01-12-2019 8:49:58 CDT by Lars Garza [email or web address] <ELECTRONICALLY SIGNED> By: Lars Garza MD, [facility] 01/12/19 0849 [id number] 0757 Lars Garza MD, [facility] /EPI
[2019-01-12 11:47] VITALS: BP 93/50
--- NOTE | 2019-01-12 16:14 | NUR ---
INITIAL ASSESSMENT: Received consult. DAPHNE reviewed chart and spoke with nursing and attending physician. Pt was admitted from home due cirrhosis, cellulitis and right 4th metatarsal fx after a fall at home. Pt was recently discharge home from [facility] on 01/07. No HH orders written at that time. Pt had EGD earlier today. DAPHNE met with pt at bedside. Introduced role of SW. Pt is alert/orientated x 4. Pt reports he lives at home alone. Prior to admission, pt was independent with ADLs. Pt does have a walker. Pt with hx of ETOH use. Pt has his right hand in a splint. Pt's PCP is Dr. Xuan Herrera. SW discussed post-acute placement v. Home with HH. Pt is not agreeable with going to a post-acute care facility. Pt states he will agree to have HH services. PT/OT ordered to evaluate pt. DAPHNE updated attending physician. DAPHNE is following to assist as needed [facility] discharge planning.
--- NOTE | 2019-01-12 16:22 | NUR ---
IN NETWORK HOME HEALTH PROVIDERS INCLUDE: [facility], [facility] P:[phone], [facility].
[2019-01-12 16:34] VITALS: BP 81/45
--- NOTE | 2019-01-12 17:49 | NUR ---
ASSUMED CARE AT 0700, SHIFT ASSESMENT DONE, MEDS GIVEN, VSS. NPO SINCE LAST NIGHT FOR EGD TODAY. UP WITH ASSIST, AFIB RATE CONTROLLED. UP WIHT STANDBY. SCHEDULED TO GO FOR A VENOGRAM TOMORROW, SO FULL LIQUID BREAKFAST TOMORROW. WILL CONTINUE TO ASSESS AND ASSIST WITH ADLs NEEDED.
[2019-01-12 20:52] VITALS: BP 88/46
[2019-01-13] VITALS (8 sets, daily range): BP systolic 97–103; BP diastolic 52–63
[2019-01-13 04:07] LABS: HEPATITIS B SURFACE AG Negative (Negative); HEPATITIS C VIRUS AB 0.1 (0.0-0.9)
--- NOTE | 2019-01-13 07:30 | NUR ---
PATIENTS CARE WAS ASSUMED AT SHIFT CHANGE. PATIENT WAS ASSESSED AND MEDS WERE PASSED. HOURLY ROUNDS WERE DONE. BED ALARM WAS ON AND THE BED IS IN A LOW AND LOCKED POSITION. PATIENT IS A/O X4 , NEEDS A PT CONSULT PATIENT HAD A GOOD NIGHT UNTIL APPROX 0615 WHEN TWO MILK TANKER DRIVER TOOK HIM TO THE BATHROOM. THEY PLACED A GAIT BELT AROUND HIM AND PATIENT HAD A WALKER IN FRONT OF HIM. WHEN HE WAS FINISHED PATIENT CALLED FOR ASSISTANCE AND AGAIN TWO TENT FINISHER'S THAT ARE LISTED IN REPORT GOT HIM UP. HE STILL HAD THE GAIT BELT ON AND THE WALKER IN FRONT OF HIM. A DRAW SHEET WAS USED A SLING TO GET THE PATIENT TO THE BED. Marko MARTINS CANE WEIGHER WAS ON THE FLOOR AND STAYED WITH THE PATIENT WHILE PRIMARY NURSE CALLED SECURITY FOR HELP. CALLED DOCTORS AND NO FAMILY TO CALL PER PATIENT NOT CLOSE TO HIS FAMILY. CANE WEIGHER AND HOUSE SUPERVISER WERE MADE AWEAR.
--- NOTE | 2019-01-13 12:03 | HC ---
[facility] [address] [place] [address] CONSULTATION Name: BELL AIKEN Room #: 215-P ADM IN M.R.#: [id number] Admission: 01/11/19 Attend Phys: Porfirio Abel MD Discharge: Date of : 62 Report #: [id number] THIS REPORT FOR: //name// CC: Porfirio BEDOYA DATE OF SERVICE: 01/12/2019 CHIEF COMPLAINT: Right hand fracture. HISTORY OF PRESENT ILLNESS: This frail 58-year-old gentleman fell at home from his bed, injuring the right hand. He is here for other general medical problems. The right hand is uncomfortable and x-rays reveal a nondisplaced crack at the distal third of the fourth metacarpal. At the time of my evaluation, the hand is protected in a well-padded splint and he seems to be comfortable. He is using the other digits in an acceptable fashion. The splint seems to be in good repair. Neurologic and vascular status are normal. The finger is well aligned. I have discussed with him the nature of the injury and the x-ray findings. The fracture is nondisplaced and probably will remain in good position if it can be protected. His current splint is satisfactory. I feel he can be discharged whenever his other medical issues are resolved. I have advised him to follow up in my office as an outpatient in 7-10 days for new x-ray of the right hand. <ELECTRONICALLY SIGNED> By: Aguila Gonzalez MD 01/13/19 1203 [id number] [id number] Aguila Gonzalez MD /nt
--- NOTE | 2019-01-13 16:40 | NUR ---
Care team discussed pt needs. He has refused OT and was dc'd from PT. The pt has been resistant to SNF or HH referrals however he may be willing to reconsider. Pt has ins plan out of [place] and in network providers may be limited. Will ask for therapies to reassess and make recommendations for acute rehab, snf or hh at ct.
--- NOTE | 2019-01-13 18:58 | NUR ---
PT CARE ASSUMED APPROX 0700. ASSESSMENTS CHARTED. PT DENIES PAIN AND SOA. VSS. TURNING Q2HRS AND PRN. PT COMPLETED PROCEDURE SUCCESSFULLY. RETUNRED FROM IR AFTER LASIX ADMIN TIME. LEFT HAND PIV ALSO INFILTRATED. ONCE PIV ACCESS REOBTAINED IT WAS APPROX 1845 AND PT REFUSED. POST PROCEDURE VSS. BS ELEVATED. MANAGING WITH SSI. RIGHT IJ SITE C/D/I. NO DISTRESS NOTED. PT TOLERATING POC.
[2019-01-14 03:15] LABS: HEMATOCRIT 33.7 % (42.0-52.0); HEMOGLOBIN 10.9 gm/dL (14.0-18.0); MCH 34.5 pg (26.0-34.0); MCHC 32.2 g/dL (28.0-37.0); RBC 3.15 mil/uL (4.50-6.00); WBC 7.2 thou/uL (4.0-11.0)
[2019-01-14 03:28] LABS: CALCIUM 8.8 mg/dL (8.5-10.1); CREATININE 1.5 mg/dL (0.7-1.3); POTASSIUM 4.1 mmol/L (3.5-5.1)
--- NOTE | 2019-01-14 04:31 | NUR ---
PT UP BSC SEVERAL TIMES AT BEGINNING OF SHIFT WITH SEVERAL SOFT TO LIQUID BM'S, NO C/O PAIN, R IJ SITE DRESSING CDI POST TIPS REVISION TODAY VOIDING PER URINAL, NEW IV PATENTIN R AC, WILL CON'T TO MONITOR PER PPOC.
[2019-01-14 07:38] VITALS: BP 106/57
--- NOTE | 2019-01-14 10:56 | HC ---
[facility] [address] [place] [address] CONSULTATION Name: BELL AIKEN Room #: 215-P ADM IN M.R.#: [id number] Admission: 01/11/19 Attend Phys: Porfirio Abel MD Discharge: Date of : 62 Report #: [id number] THIS REPORT FOR: //name// CC: Porfirio BEDOYA DATE OF SERVICE: 01/13/2019 CONSULTING PHYSICIAN: Dr. Abel. REASON FOR CONSULTATION: Uncontrolled type 2 diabetes mellitus. HISTORY OF PRESENT ILLNESS: This is a 58-year-old male patient whose medical background is significant for multiple medical issues including congestive heart failure, liver cirrhosis, hepatitis C, hypertension, type 2 diabetes mellitus. The patient presented to [facility] on 01/11/2019 following a fall that he sustained when he tripped down. He was subsequently admitted for further care and monitoring. Importantly, the patient was at the hospital just briefly before that for issues of pneumonia and sepsis as well. As far as the history of diabetes mellitus goes, the patient notes that he has been diagnosed with this for over 10 years and that it coincided with a stroke that he had about the same time. The patient notes that his only antidiabetic agent at home is Levemir taking at a low dose of 8 units q.p.m. He notes that his blood glucose control is typically quite stable with most values running in the low to mid 100 range, but with occasional spikes over 200 mg/dL following meals. He has not had issues with hypoglycemia. The patient believes that he might have received reports about potential retinal eye disease due to diabetes, but he is not aware of issues pertaining to nephropathy. He does have intermittent difficulties with numbness and tingling affecting his feet and hands. The patient has not experienced angina or MIs in the past, but does have congestive heart failure and cardiomyopathy. He reports of stroke in the past as well. Importantly, the patient has liver cirrhosis, presumably due to alcohol abuse as well as a history of hepatitis C. REVIEW OF SYSTEMS: CONSTITUTIONAL: Fatigue, tiredness, progressive weight gain, but no fever or chills. HEENT: Negative for sore throat, active sinus pain or ear drainage. PULMONARY: Baseline shortness of breath, dyspnea on exertion, cough, but no hemoptysis. CARDIAC: Lower extremity swelling, dyspnea on exertion and orthopnea, but no chest pain, no syncope. [address] [address] CONSULTATION Name: BELL AIKEN Room #: 215-P [facility] IN .R.#: [id number] Admission: 01/11/19 Attend Phys: Porfirio Abel MD Discharge: Date of : 62 Report #: [id number] GASTROINTESTINAL: Occasional issues with abdominal discomfort, nausea, but no vomiting. Intermittent difficulties with alternating bowel movements. MUSCULOSKELETAL: Right forearm pain and tenderness sustained following his fall 2 days ago. Diffuse difficulties with arthralgias and myalgias. PSYCHIATRIC: Negative for hallucinations, delusions. Otherwise, review of systems noncontributory other than those mentioned in HPI. PAST MEDICAL HISTORY: 1. Morbid obesity, type 2 diabetes mellitus, hypertension, cardiomyopathy, congestive heart failure, alcoholic liver disease, cirrhosis. 2. Hepatitis C. 3. Esophageal varices. 4. Portal hypertension. 5. Atrial fibrillation. OUTPATIENT MEDICATIONS: Include Lasix 40 mg daily, potassium chloride 20 mEq b.i.d., lactulose 20 grams t.i.d., spironolactone 25 mg daily, gabapentin 100 mg b.i.d., ranitidine 150 mg at bedtime, metoprolol XL 100 mg daily, Levemir 8 units q.p.m., diltiazem 180 daily. ALLERGIES: He reports allergies to ACETAMINOPHEN, IBUPROFEN, AND NSAIDs. FAMILY HISTORY: Noncontributory. SOCIAL HISTORY: The patient lives alone. Denies use of tobacco and notes that he does not use alcohol currently. PHYSICAL EXAMINATION: GENERAL: Pleasant male patient who is not in apparent distress. VITAL SIGNS: Blood pressure is 97/55 mmHg, heart rate is 69 beats per minute, temperature 36.3 degrees, respiration 18 per minute. CONSTITUTIONAL: The patient appears generally comfortable, not in apparent distress. HEENT: Jaundiced sclerae. Intact extraocular motions. NECK: Supple, without JVD, carotid bruits or lymphadenopathy. I do not appreciate thyromegaly. CHEST: Noted for distant breath sounds bilaterally. Scattered rales, crackles, but no wheezes. HEART: Distant heart sounds without discernible murmurs or gallops. ABDOMEN: Obese, but soft and lax without tenderness, guarding or notable organomegaly. He has active bowel sounds. EXTREMITIES: Lower extremity exam is noted for +2 edema bilaterally with marked hyperemia and stasis dermatitis noted over the right lower extremity. NEUROLOGIC: Awake, alert and oriented to time, place and person. The remainder of his examination is nonfocal other than for sensory deficits over both feet. PSYCHOLOGY: Pleasant, appropriate and interactive with normal mood and affect. [address] [address] CONSULTATION Name: BELL AIKEN Room #: 215-P [facility] IN M.R.#: [id number] Admission: 01/11/19 Attend Phys: Porfirio Abel MD Discharge: Date of : 62 Report #: [id number] LABORATORY DATA: Blood glucose values have consistently been over 200 mg/dL with occasional bouts of blood glucose values in the 100 mg/dL range. Otherwise, sodium 138, potassium 4.1, chloride 102, CO2 of 28, anion gap 8, BUN 18, creatinine 0.9. AST 83, amylase 43, lipase 200, total protein 13, calcium 8.3, phosphorus 3.2, magnesium 1.0, alkaline phosphatase 147, ALT 81, total protein 6.0, albumin 2.0, GFR 87, ammonia 62. Lactic acid 2.2. Total CPK 163. INR 2.2. White blood count 7.8, hemoglobin 10.7, hematocrit 32.4, platelets 133. TSH is 4.771. Hemoglobin A1c is 7.4. ASSESSMENT AND PLAN: 1. Type 2 diabetes mellitus. As noted in HPI, the patient has had a longstanding history of type 2 diabetes mellitus. He has needed rather small dose of Levemir at home to maintain adequate control as per his report and his hemoglobin A1c reflects that he has not been far from ideal control. That said, I would like to resume the intake of long-acting insulin, which I will put him back on again at 14 units q.p.m., I believe that we are seeing higher than usual blood glucose values due to the patient's receiving glucocorticoids as well as his intercurrent illnesses. In the meantime, I will maintain coverage with Humalog supplemental scale low intensity as well as introduce metformin 500 mg b.i.d. Maintain blood glucose monitoring a.c. and at bedtime. 2. Hypothyroidism. The patient's recently obtained TSH is reflective of potential or let us say possible hypothyroidism. I will investigate this further with a free T4 and TPO antibodies. Further action, workup, and treatment will be based on these results. 3. Hypertension. The patient's level of blood pressure control is adequate. Continue the current regimen. 4. Sepsis and cellulitis. The patient is currently receiving antibiotics and is stabilizing. Continue the same. I appreciate this consultation by Dr. Abel. ADDENDUM: I have reviewed the patient's medical chart, other clinical care notes, laboratory results and past results for over 35 minutes. <ELECTRONICALLY SIGNED> By: Michelle Cespedes MD 01/14/19 1056 [id number] [id number] Michelle Cespedes MD /nt
[2019-01-14 11:25] VITALS: BP 93/53
[2019-01-14 14:53] VITALS: BP 94/54
[2019-01-14 16:08] VITALS: BP 100/48
--- NOTE | 2019-01-14 17:03 | NUR ---
RECEIVED PT'S CARE AROUND 0730; PT. RESTING WITH EYES CLOSED; DURING ASSESSMENT SLEEP INTERRUMPTED; AM MEDICATIONS GIVEN; REFUSED LACTULOSE; ST. WANTS TO GO HOME, BUT THEY DO NOT LET HIM GO; EDUCATED ABOUT THE IMPORTANCE OF FOLLOWING POC; ST. "I KNOW, I KNOW"; PER GI PHYSICIAN OK PT. TO HAVE LACTULOSE PRN TO ACHIEVE 2-3 BMs DURING THE DAY; PER ASSEMBLER FINGER BUFFS PHYSICIAN INCREASE SLIDING SCALE TO MODERATE & NPH INSULIN AT HS; PER HOSPITALIST PT. CONSULTATION TO KNOW POC AT D/C; PER PT. REPORT PT. NEEDS REHAB; REHAB CONSULTATION ORDERED; SBP ON THE 90s DURING THE AFTERNOON; MAP=64; CHECK CHARTING; FUROSEMIDE NOT GIVEN; CREATININE 1.5; PHYSICIAN PAGED; NO CALL BACK; MONITORING; ASSESSMENT CHARGED; FOLLOWING POC; WILL PASS ON REPORT;
[2019-01-14 20:07] VITALS: BP 105/50
[2019-01-15 05:48] VITALS: BP 129/70
--- NOTE | 2019-01-15 06:25 | NUR ---
PT REMAINS IRRITABLE, IMPULSIVE, INSISTS ON GOING INTO BATHROOM AND THEN TOO WEAK TO GET UP AND OUT WITH OUT ASSITANCE FROM 3 TO 4 PEOPLE TO GET HIM BACK IN BED, SLOW TO MOVE, DOESNT FOLLOW COMMANDS, REMAINS SLUMPED OVER STATES HE FEELS WEAK AND TIRED, THEN AFTER HE IS POSITIONED IN BED APOLOGIZES, EXPLAINED TO PT BY SEVERAL NURSES THAT WE ARE TRYING TO KEEP HIM SAFE AND STATES HE KNOWS BUT DOESN'T WANT TO USE COMMODE CAUSE HE CANT URINATE AND HAVE BM AT SAME TIME WITH OUT GETTING IT EVERYWHERE, ARGUMENT IS DISPROVEN CAUSE THE SAME THING HAPPENS IN BATHROOM AND THEN THER IS NOT ENOUGH ROOM FOR HELP HIM UP AND HE STATES HE IS TOO WEAK. PT NOW AGREES TO USE COMMODE AND ASK FOR ASSISTANCE WITH URINAL, BED ALARM ON, VSS, REMAINS AFLUTTER PER MONITOR. WILL CON'T TO MONITOR.
[2019-01-15 07:52] VITALS: BP 106/66
[2019-01-15 08:48] LABS: CREATININE 1.4 mg/dL (0.7-1.3); POTASSIUM 4.1 mmol/L (3.5-5.1)
[2019-01-15 11:45] LABS: INR 1.7; PROTIME 18.2 Seconds (9.3-11.4)
[2019-01-15 11:52] LABS: ALBUMIN 1.9 g/dL (3.4-5.0); DIRECT BILIRUBIN 7.3 mg/dL (<0.1-0.3); TOTAL BILIRUBIN 10.2 mg/dL (<0.1-1.0)
[2019-01-15 11:54] LABS: TOTAL PROTEIN 6.2 g/dL (6.4-8.2)
[2019-01-15 13:00] VITALS: BP 116/67
[2019-01-15 16:09] VITALS: BP 127/73
--- NOTE | 2019-01-15 16:56 | NUR ---
RECEIVED PT'S CARE AT 0700; PT. ON BED; DROWSY; HARD TO AROUSE; AROUSE TO PAIN; PER REPORT PT. HAD DURING THE NIGHT HARD TIME WALKING; NO AM LABS; PER CARDIOLOGYST ORDER BMP ORDER; PHYSICIAN PAGED TO NOTIFIED PT. STATUS; DURING ASSESSMENT AWAKED TO PAIN; REFUSED LACTULOSE; PHYSICIAN NOTIFIED; ORDERS RECEIVED; BREAKFAST SETTED UP; PT. NOT ABLE TO REMAIN AWAKE TO HAVE BREAKFAST; INSULIN NO COVER; GI PHYSICIAN ON THE FLOOR AROUND 0950; NOTIFIED ABOUT PT'S STATUS; PHYSICIAN WITH ART OBJECTS REPAIRER AT THE BED SIDE; ASKED BY GI PHYSICIAN IF WOULD TAKE NG TUBE; PT. REFUSED; REFUSED LATULOSE WHEN ASKED BY PHYSICIAN TO TAKE MEDICATION; PHYSICIAN EXPLAINED POSSIBLE CONSEQUENCES; PT. REPLIED DOES NOT WANT LACTULOSE; AMMONIA 99; PHYSICIAN NOTIFIED; CONTACT FAMILY TO NOTIFIED PT'S STATUS; PER DR. MITCHELL ORDERS CONTACT FAMILY TO KNOW WHO IS THE DPOA; PER DAUGHTER STATEMENT SHE IS NOT SURE IF PT. HAS A DPOA & PT'S MOTHER MIGHT BE DUE TO DAUGHTER LIVES OUTSIDE OF THE STATE; PHYSICIAN NOTIFIED; NO NEW ORDERS; PT'S MOTHER NOTIFIED; MOTHER ST. NOT BEING SURE OF PT HAVING A DPOA, BUT SHE COULD BE THE PERSON OF MAKING MEDICATIO DECISIONS IF NEEDED. MOTHER ST. NOT HAVING ANY LEGAL DOCUMENT AT THE MOMENT ABOUT MEDICAL DECISIONS; ST. SHE WOULD VISIT PT. TOMORROW (01/16/19) EARLY ON THE MORNING, SO SHE CAN MEET WITH PHYSICIANS; AT LUNCH PT. DROWSY; NO ABLE TO EAT; LACTULOSE GIVEN WITH JUICE; THROUGH THE AFTERNOON; PT. DROWSY; INCONTINENT; MONITORING; ASSESSMENT CHARGED; FOLLOWING POC; WILL PASS ON REPORT;
[2019-01-15 20:09] VITALS: BP 114/51
[2019-01-16] VITALS (7 sets, daily range): BP systolic 115–134; BP diastolic 56–69
--- NOTE | 2019-01-16 12:38 | NUR ---
Spoke with patient regarding post acute care. Patient interested in post acute care. Gave him insurance contracted facilities. he has reviewed and interested in referral to [facility]. Requested if [facility] accepting plan submit for auth today.
--- NOTE | 2019-01-16 13:33 | NUR ---
FAXED REFERRAL TO [facility] SPOKE WITH LEIGH ANN IN ADM SHE RECEIVED REFERRAL BUT WILL HAVE TO DENY DUE TO HIGH COST OF PT'S MEDS. DP TO FOLLOW.
--- NOTE | 2019-01-16 13:36 | NUR ---
[facility] not accepting of patient for post acute care. sp with patient and plan referral to [facility].
--- NOTE | 2019-01-16 14:11 | NUR ---
while sitting in chair, pt incontinent of large loose stool dripping from his chair. cleaned with 2 assist. remains in chair with chair alarm enabled.
--- NOTE | 2019-01-16 14:33 | NUR ---
FAXED REFERRAL TO [facility] SPOKE WITH LEXY IN ADM SHE RECEIVED REFERRAL AND WILL REVIEW. DP TO FOLLOW.
--- NOTE | 2019-01-16 16:50 | NUR ---
spoke with mother. patient accepted clinically to [facility]. Jordan Mahoney to submit for auth.
--- NOTE | 2019-01-16 18:00 | NUR ---
PT'S IV OUT, FOUND IV IN BED. ATTEMPTED TO PLACE IV X2, UNSUCCESSFULLY. PT HAS NO OTHER IV ACCESS. NOTIFIED GRACE, TANNING WHEEL FILLER NURSE. SHE STATED, "WE WILL GET TO IT".
--- NOTE | 2019-01-16 18:30 | NUR ---
PT VERY WEAK, SHAKEY WHEN FEEDING SELF, UNABLE TO ASSIST IN MOVING SELF UP IN BED, UNABLE TO SCOOT SELF BACK IN CHAIR, WEAK WHEN STANDING. DENIES PAIN, AFLUTTER, ROOM AIR, RESP EVEN AND UNLABORED, POOR APPETITE, INCONTINENT OF URINE AND STOOL. MARCIN AIKEN PRESENT TO SEE PT TODAY.
[2019-01-17 01:08] VITALS: BP 128/69
--- NOTE | 2019-01-17 04:44 | NUR ---
PATIENTS CARES WERE ASSUMED AT SHIFT CHANGE. PATIENT WAS ASSESSED AND MES WERE PASSED. HOURLY ROUNDING WAS DONE. THE BED ALARM IS ON. THE BED IS IN A LOW AND LOCKED POSITION. ONE COMPLETE BED CHANGE THIS SHIFT DUE TO A VERY LARGE BM. SECURITY CALL TO HELP MOVE THIS PATIENT.
[2019-01-17 04:47] LABS: ALBUMIN 1.9 g/dL (3.4-5.0); CREATININE 0.9 mg/dL (0.7-1.3); DIRECT BILIRUBIN 7.2 mg/dL (<0.1-0.3); MAGNESIUM 1.5 mg/dL (1.8-2.4); POTASSIUM 3.8 mmol/L (3.5-5.1); TOTAL BILIRUBIN 10.2 mg/dL (<0.1-1.0); TOTAL PROTEIN 6.3 g/dL (6.4-8.2)
[2019-01-17 06:34] VITALS: BP 131/70
[2019-01-17 07:56] VITALS: BP 100/54
--- NOTE | 2019-01-17 09:06 | NUR ---
Assess due to high BMI 44 extreme class III obesity. Pt with extensive pmh to include ESLD secondary to etoh abuse, dm CHF. Admitted following fall with confusion. Hepatic encephalopathy, ammonia 99, requires lactulose. Past admissions and wts usually trend around 270 lb. This admission 306 lb, 3+ bilateraly leg edema and requires spironolactone and lasix. Typically eats well, but decreased intake with lethargy. Will add glucerna shakes bid until appetite more consistently better. Currently not on any carb restrictions, BG managed by endocronologist. Low nutrition risk for now but continue to follow.
[2019-01-17 11:36] VITALS: BP 117/56
[2019-01-17] MEDS ORDERED: ALDACTONE50 MG PO (13:23)
[2019-01-17] MEDS ORDERED: KEFLEX500 M2 PO (13:30)
--- NOTE | 2019-01-17 16:25 | NUR ---
ASSESSMENTS AND INTERVENTIONS DOCCUMENTED. PATIENT IN BED. PATIENT REPOSITIONED AND BATHED BY RN AND TECH. PATIENT MORE COMFORTABLE AND ABLE TO EAT BREAKFAST. DR. WHITTINGTON GAVE ORDERS FOR MAG RELATED TO LOW MAG LEVELS. LAB TO REDRAW AND RECHECK. NURSE WALKED IN ROOM AND PATIENT HAS CHEWING TOBACCO IN HAND. RN REMOVED IT FROM BED SIDE TABLE AND PLACED AT NURSING STATION. DR. WHITTINGTON PAGED FOR NEXT STEPS. PLAN OF CARE IS TO DISCHARGED TO SNF
--- NOTE | 2019-01-17 16:47 | NUR ---
At this time no auth from insurance for [employer]. Spoke with patients mother today.
[2019-01-17 16:50] VITALS: BP 119/61
--- NOTE | 2019-01-17 21:25 | P ---
[facility] [address] [place] [address] PROCEDURE REPORT Name: BELL AIKEN Room #: 215-P [facility] IN M.R.#: [id number] Admission: 01/11/19 Attend Phys: Porfirio Abel MD Discharge: Date of : 62 Report #: [id number] THIS REPORT FOR: //name// CC: Porfirio Herrera PROCEDURE: Esophagogastroduodenoscopy. INDICATION FOR PROCEDURE: The patient has a diagnosis of cirrhosis. We are evaluating him for possible esophageal varices. Informed consent for this procedure was obtained prior to the administration of any medication. The potential risks, which include but are not limited to the following bleeding, perforation, infection, complications of sedation and the possibility I could miss something were explained to the patient and he has indicated his consent to proceed by signing. Anesthesia kindly provided deep sedation for this procedure. With the patient in the left lateral decubitus position, the Olympus upper videoscope was introduced through the upper esophageal sphincter and advanced under direct visualization to the third portion of the duodenum. Findings are noted on withdrawal of the scope. The duodenal mucosa appears normal throughout its visualized entirety. Pylorus, normal mucosa. Antrum, normal mucosa. Body, normal mucosa. In the cardia and fundus, there are 3 nonbleeding potential proximal gastric varices that are noted near the cardia of the stomach. No other abnormalities are seen in the stomach. The scope was withdrawn into the esophagus. The Z-line is appropriately located at the top of the gastric folds and appears normal. The esophageal mucosa appears normal throughout. There was no evidence of any type of esophageal varices at this time. The scope was withdrawn. The patient went to the recovery area in stable condition. He tolerated the procedure well. IMPRESSION: 1. Normal esophagus. No esophageal varices seen. 2. Three potential proximal gastric nonbleeding varices seen. Otherwise, normal stomach. 3. Normal duodenum to the third portion and also incidentally the patient has a low folate level. RECOMMENDATIONS: To replace the folic acid, evaluate the pancreas for possible tumor as he has gastric varices without esophageal varices. We would recommend checking hepatitis B core IgM, hepatitis B surface antigen, hepatitis C antibody. We also recommend checking iron, TIBC, ferritin, [address] [address] PROCEDURE REPORT Name: AlexCIRILOBELL BEBO Room #: 215-P [facility] IN ..#: [id number] Admission: 01/11/19 Attend Phys: Porfirio Abel MD Discharge: Date of : 62 Report #: [id number] ceruloplasmin, sed rate, MAT, smooth muscle antibody and antimitochondrial antibody. Thank you very much once again for allowing me to participate in his care, Dr. Mayes and Dr. Abel. <ELECTRONICALLY SIGNED> By: Vicki Alcaraz DO 01/17/19 2125 [id number] 1404 Vicki Alcaraz DO /nt
[2019-01-17 21:47] VITALS: BP 125/69
--- NOTE | 2019-01-18 05:00 | NUR ---
PT ALERT AND ORIENTED. A LITTLE DROWSY, INCONTINENT OF BOTH BOWEL AND URINE. PT CLEANED PERIODICALLY. VITALS REMAIN STABLE. ASSIST X1 TO THE BEDSIDE COMMODE . NO FURTHER C/O. WILL CONTINUE TO FOLLOW POC.
[2019-01-18 06:18] VITALS: BP 136/74
[2019-01-18 11:54] VITALS: BP 132/69
--- NOTE | 2019-01-18 13:09 | NUR ---
ASSUMED CARE THIS AM. DROWSY, OPENS EYES TO VERBAL REQUEST OTHERWISE HE KEEPS THEM CLOSED. FOLLOWS COMMANDS, ORIENTED TO NAME AND PLACE, REORIENTED TO TIME. FLAT AFFECT, DOES NOT WANT TO DO ANY ACTIVITIES. HOB UP FOR BREAKFAST BUT PATIENT DID NOT EAT, SLEPT. ZITA WITH PIV, FLUSHES EASILY. INCONTINENT OF BOWEL AND URINE. AREA BETWEEN GROIN AND PERINEUM VERY EXCORIATED AND PAINFUL. REFUSES WINKLER. APPLYING PROTECTIVE CREAM.
--- NOTE | 2019-01-18 14:48 | NUR ---
cont to await [facility] for [facility].
[2019-01-18 19:37] VITALS: BP 130/63
[2019-01-19 04:04] VITALS: BP 122/65
--- NOTE | 2019-01-19 04:37 | NUR ---
PT CONCERNED ABOUT HIS SKIN BREAK DOWN. BOTTOM RED, WITH TINY OPEN SORES. FREQUENT REPOSITIONING ENCOURAGED . INCONTINENT PADS CHANGED REGULARLY , AND PROTECTIVE CREAM APPLIED. NO OTHER C/O REPORTED. VSS. WILL CONTINUE TO MONITOR.
[2019-01-19 06:12] LABS: ALBUMIN 1.7 g/dL (3.4-5.0); DIRECT BILIRUBIN 6.1 mg/dL (<0.1-0.3); TOTAL BILIRUBIN 8.9 mg/dL (<0.1-1.0); TOTAL PROTEIN 5.9 g/dL (6.4-8.2)
[2019-01-19 07:20] VITALS: BP 117/66
[2019-01-19 11:50] VITALS: BP 110/74
--- NOTE | 2019-01-19 15:13 | NUR ---
this am faxed updated therapy evals to [facility]. At this time no auth for post acute care.
[2019-01-19 17:15] VITALS: BP 106/63
--- NOTE | 2019-01-19 18:47 | NUR ---
ASSUMED CARE @ 0700 01/19/19, PT ASSESSMENTS AND VSS COMPLETE PER MED/SURG ORDERS, ORDERS RECIEVED TO BE TRANSFERRED TO ROOM 443, REPORT GIVEN, PT TRANSPORTED WITH THE AID OF NURSE AND NURSINF AID, NO COMPLICATIONS NOTED, PT HAD AN UNEVENTFUL NIGHT. PLAN OF CARE- CONT TO MONITOR.
[2019-01-19 19:39] VITALS: BP 132/72
--- NOTE | 2019-01-20 03:39 | NUR ---
ASSUMED CARE OF PT @ 1900 PT TRANSFERRED FROM [facility]. A&O TO PERSON AND SITUATION WITH CONFUSION. ON ASSESSMENT REDNESS IN BOTTOM. PT HAD 4 LOOSE STOOLS THIS SHIFT DUE TO LACTULOSE GIVEN TID DURING THE DAY BY PRIEVIOUS NURSE FOR ELEVATED AMONIA LEVEL. BARRIER CREAM APPILED. INCONTINENT PAD PLACED FREQ AND PT USED BSC X1 ASSIST WITH WALKER. ORDER PLACED FOR FECAL MANAGEMENT, INSERTED AND WILL CONT TO MONITOR TILL EOS. PT ABLE TO TURN HIMSELF. ENCOURAGED PO FLIUDS DUE TO YANET URINE. URINAL BY BEDSIDE, FALL PREC IN PLACE AND CALL ARLARM WITHIN REACH. HOURLY ROUNDING DONE AND INSULIN GIVEN FOR A BS OF 320. WILL CONT WITH POC TILL EOS.
[2019-01-20 08:00] VITALS: BP 106/68
[2019-01-20 10:38] VITALS: BP 106/68
--- NOTE | 2019-01-20 12:04 | NUR ---
OBTAINED AUTH FOR SENTHIL PT DISCHARGING TODAY TO FACILITY FAXED DC ORDERS/SUMMARY TO FACILITY RECEIVED CONFIRMATION SPOKE WITH LEXY IN ADM SHE ARRANGED TRANSPORT BY [facility] VAN AND NO 02 FOR [id number]. PT WILL NOTIFY FAMILY OF DC AND TIME OF TRANSPORT. UNIT NOTIFIED AND CHART COPY PER US. RN TO CALL REPORT TO [phone].
--- NOTE | 2019-01-20 18:21 | NUR ---
ASSUMED CARE OF PATIENT AT 0715, PATIENT ALERT WITH PERIODS OF CONFUSION. PATIENT DENIES PAIN. PATIENT HAS LEFT UPPER ARM IV IN PLACE, RECEIVED 1 IV ANTIBIOTIC. BLOOD SUGAR MONITORING ORDERED, INSULIN GIVEN PER S/S AND SCHEDULED DOSE. PATIENT HAS MULTIPLE BRUISES AND RED AREAS. FECAL MANAGEMENT SYSTEM REMOVED PRIOR TO DISCHARGE. THIS RN NOTIFIED DR WHITTINGTON OF FECAL MANAGEMENT INSERTED BY NIGHTSHIFT NURSE, LACTULOSE HELD X 2 THIS SHIFT. INSURANCE AUTH. RECEIVED, PATIENT GOING TO [facility]. LEFT UPPER ARM IV REMOVED PRIOR TO DISCHARGE. ALL PATIENT BELONGINGS SENT WITH THE PATIENT, DISCHARGE PAPERWORK SENT WITH THE W/C VAN TRANSPORTATION. REPORT CALLED MIGUEL/HAL AT THE FACILITY.
--- NOTE | 2019-01-24 12:00 | HC ---
[facility] [address] [place] [address] CONSULTATION Name: NELLIBELL LAGUNAS Room #: 443-P [facility] IN M.R.#: [id number] Admission: 01/11/19 Attend Phys: Porfirio Abel MD Discharge: 01/20/19 Date of : 62 Report #: [id number] THIS REPORT FOR: //name// CC: Porfirio BEDOYA DATE OF SERVICE: 01/16/2019 HISTORY OF PRESENT ILLNESS: The patient is a 58-year-old white male who was admitted with cellulitis, right lower extremity. He has a prior history of end-stage liver disease with cirrhosis and has had prior TIPS. He was seen by Gastroenterology. EGD showed proximal gastric varices, nonbleeding. He is noted to have hepatic encephalopathy. Ammonia of 99. He is on lactulose. Prior to his admission, he had a fall at home and sustained a right fourth metacarpal fracture and was placed in a splint as per Orthopedics. We are seeing him in rehabilitation medicine consultation. PAST MEDICAL HISTORY: Includes the end-stage liver disease with cirrhosis. He has had prior multiple admissions for recurrent effusions and has had thoracentesis done. History of hepatitis C, cirrhosis, obstructive sleep apnea, and morbid obesity. He had an AICD placed and then apparently had it removed. ALLERGIES: MOTRIN, NONSTEROIDALS. SOCIAL HISTORY: The patient lives in an apartment with elevators, premorbid roller walker ambulator. HABITS: There is a history of noncompliance with meds and ETOH. REVIEW OF SYSTEMS: He is having the diarrhea with the lactulose. PHYSICAL EXAMINATION: GENERAL: An obese 58-year-old male in no obvious distress. Follows basic commands. VITAL SIGNS: Include temperature 97.2, pulse 85, respirations 20, blood pressure 134/63. EXTREMITIES: Functional range of motion of the upper extremities, he has the right 4th metacarpal fracture with splint. He does have significant exogenous obesity. Upper body strength is probably a grade 4-/5. Lower extremities functional range of motion, strength is probably a grade 4-/5 to 3+/5. He does need max assist with sit to stand. Once he is up; however, he is ambulating 250 feet min assist with a front-wheeled walker. ASSESSMENT: A 58-year-old white male with the following problem list: 1. Hepatic encephalopathy. He has the elevated ammonia and is on lactulose. 2. End-stage liver disease with cirrhosis. [address] [address] CONSULTATION Name: BELL AIKEN Room #: 443-[facility]#: [id number] Admission: 01/11/19 Attend Phys: Porfirio Abel MD Discharge: 01/20/19 Date of : 62 Report #: [id number] 3. Right lower extremity cellulitis. 4. Acute renal insufficiency. 5. Atrial flutter with rapid ventricular rate. 6. Thrombocytopenia. 7. Right fourth metacarpal fracture. 8. Elevated blood sugars. 9. Cardiomyopathy with prior ICD removal. 10. Tobacco abuse. PLAN: Note that [facility] facility options are being assessed. His prior home setting is suboptimal as well, and there were issues with some noncompliance. I would agree that a [facility] facility stay would appear to be the most appropriate for him. I am not sure how reasonable it is for him to return back to the home setting, but clearly this is not an option with his ongoing treatment at this time for the hepatic encephalopathy. Agree with case management involvement and plans for [facility] facility transfer as are being arranged. We will be glad to follow along with you regarding rehab therapy issues while he remains here at [facility]. <ELECTRONICALLY SIGNED> By: Aguila Webb MD 01/24/19 1200 1521 [id number] Aguila Webb MD /nt
== END 2019-01-20 14:00 | DRG 871 ==
LOC: ER 08:25 → 4S 11:31 → 2N 11:31 → EROBS 11:31 → 2N 14:11 → 4S 01-19 18:23
PROVIDERS: Emergency Medicine; Internal Medicine; Internal Medicine Gastroenterology; Nurse Practitioner; ADMIT Hospitalist
PROC: 2W3CX1Z Immobilization of Right Lower Arm using Splint (ICD-10-PCS; principal; 2019-01-11)
PROC: 0DJ08ZZ Inspection of Upper Intestinal Tract, Via Natural or Artificial Opening Endoscopic (ICD-10-PCS; 2019-01-12)
PROC: B51T1ZZ Fluoroscopy of Portal and Splanchnic Veins using Low Osmolar Contrast (ICD-10-PCS; 2019-01-13)
DX: A41.9 Sepsis, unspecified organism (principal); G93.41 Metabolic encephalopathy; E44.0 Moderate protein-calorie malnutrition; K76.6 Portal hypertension; I48.92 Unspecified atrial flutter; L03.115 Cellulitis of right lower limb; Z68.41 Body mass index [BMI] 40.0-44.9, adult; N17.9 Acute kidney failure, unspecified; K62.5 Hemorrhage of anus and rectum; K72.90 Hepatic failure, unspecified without coma; I11.0 Hypertensive heart disease with heart failure; E66.01 Morbid (severe) obesity due to excess calories; E03.9 Hypothyroidism, unspecified; G47.33 Obstructive sleep apnea (adult) (pediatric); I86.4 Gastric varices; I25.5 Ischemic cardiomyopathy; E11.40 Type 2 diabetes mellitus with diabetic neuropathy, unspecified; K80.20 Calculus of gallbladder without cholecystitis without obstruction; R59.0 Localized enlarged lymph nodes; K59.00 Constipation, unspecified; Z91.19 Patient's noncompliance with other medical treatment and regimen; D69.6 Thrombocytopenia, unspecified; K70.31 Alcoholic cirrhosis of liver with ascites; E11.65 Type 2 diabetes mellitus with hyperglycemia; M41.50 Other secondary scoliosis, site unspecified; S62.394A Other fracture of fourth metacarpal bone, right hand, initial encounter for closed fracture; B18.2 Chronic viral hepatitis C; F17.220 Nicotine dependence, chewing tobacco, uncomplicated; F10.10 Alcohol abuse, uncomplicated; I48.0 Paroxysmal atrial fibrillation; W01.0XXA Fall on same level from slipping, tripping and stumbling without subsequent striking against object, initial encounter; R65.20 Severe sepsis without septic shock; I50.9 Heart failure, unspecified; Z79.84 Long term (current) use of oral hypoglycemic drugs; Z95.810 Presence of automatic (implantable) cardiac defibrillator; Z79.01 Long term (current) use of anticoagulants; Z88.6 Allergy status to analgesic agent; Z88.8 Allergy status to other drugs, medicaments and biological substances; Z79.899 Other long term (current) drug therapy; Y93.89 Activity, other specified; Y92.89 Other specified places as the place of occurrence of the external cause; Y99.8 Other external cause status; Z71.6 Tobacco abuse counseling
CPT/HCPCS: 10081; 10102; 10797; 62110; 62900; 70005

== ENCOUNTER 2019-01-27 21:48 | Emergency (ER) | payer OTHER ==
[~2019-01-27] VITALS: Ht 170.2 cm; Wt 117.9 kg
[~2019-01-27 21:48] MED LIST changes: +KEFLEX500 M2 PO
[2019-01-28 00:24] VITALS: BP 108/71
[2019-01-29] MEDS ORDERED: ACIDOPHILUS1 EAC2 PO (16:48)
[2019-01-29] MEDS ORDERED: HUMALOG100 UNIT/1 SUBQ (16:48)
[2019-01-29] MEDS ORDERED: LANTUS SUBQ (16:49)
[2019-01-29] MEDS ORDERED: LIDODERM1 EACH TRANSDERM (16:50)
[2019-01-29] MEDS ORDERED: TOPROL XL100 MG PO (16:50)
[2019-01-29] MEDS ORDERED: VITAMIN D32000 UNIT PO (16:51)
== END 2019-01-28 00:33 | disposition home or self-care (01) ==
LOC: ER 21:48
DX: M54.5 Low back pain (principal); E11.9 Type 2 diabetes mellitus without complications; I48.91 Unspecified atrial fibrillation; I50.9 Heart failure, unspecified; F17.210 Nicotine dependence, cigarettes, uncomplicated; Z88.6 Allergy status to analgesic agent

== ENCOUNTER 2019-01-29 16:05 | Inpatient (IN) | payer OTHER ==
[~2019-01-29] VITALS: Ht 170.2 cm; Wt 128.7 kg
[2019-01-29] VITALS (52 sets, daily range): BP systolic 75–132; BP diastolic 50–108
[2019-01-29 16:36] LABS: HEMATOCRIT 37.1 % (42.0-52.0); HEMOGLOBIN 11.9 gm/dL (14.0-18.0); MCH 34.8 pg (26.0-34.0); MCHC 32.2 g/dL (28.0-37.0); RBC 3.44 mil/uL (4.50-6.00); RDW 19.7 % (10.5-14.5); WBC 4.5 thou/uL (4.0-11.0)
[2019-01-29 16:42] LABS: BE(vivo) 8.9 mmol/L (-2 to +3); HCO3 33.4 mmol/L (22.0-26.0); PCO2 45.6 mmHg (35.0-45.0); PO2 68.6 mmHg (80.0-100.0); pH 7.483 (7.360-7.450); sO2 94.8 % (92.0-98.0)
[2019-01-29 16:44] LABS: ANION GAP 0 mmol/L (7-16); BUN 12 mg/dL (7-18); CALCIUM 9.2 mg/dL (8.5-10.1); CHLORIDE 96 mmol/L (98-107); CO2 35 mmol/L (21-32); CREATININE 0.8 mg/dL (0.7-1.3); GLUCOSE 88 mg/dL (74-106); POTASSIUM 4.2 mmol/L (3.5-5.1); SODIUM 131 mmol/L (136-145)
[2019-01-29] MEDS ORDERED: HUMALOG100 UNIT/1 SUBQ (16:48)
[2019-01-29] MEDS ORDERED: ACIDOPHILUS1 EAC2 PO (16:48)
[2019-01-29] MEDS ORDERED: LANTUS SUBQ (16:49)
[2019-01-29] MEDS ORDERED: LIDODERM1 EACH TRANSDERM (16:50)
[2019-01-29] MEDS ORDERED: TOPROL XL100 MG PO (16:50)
[2019-01-29] MEDS ORDERED: VITAMIN D32000 UNIT PO (16:51)
[2019-01-29 16:52] LABS: TROPONIN-I <0.06 ng/mL (<0.06)
[2019-01-29 17:00] LABS: APTT 34.4 Seconds (24.5-32.8); INR 1.6; PROTIME 16.9 Seconds (9.3-11.4)
[2019-01-29 17:31] LABS: URINE BILIRUBIN 2+ (Negative); URINE BLOOD 3+ (Negative); URINE CLARITY CLOUDY; URINE COLOR RED; URINE GLUCOSE-RANDOM* NEGATIVE (Negative); URINE KETONES NEGATIVE (Negative); URINE PROTEIN (DIPSTICK) 2+ (Negative)
[2019-01-29 17:32] LABS: ICTOTEST (BILI CONFIRMATORY) Positive (Negative); URINE LEUKOCYTES-REFLEX 2+ (Negative); URINE NITRITE-REFLEX POSITIVE (Negative)
[2019-01-29 17:39] LABS: AMP/METHAMP Negative (Negative); BARBITURATES Negative (Negative); BENZODIAZEPINES Negative (Negative); COCAINE Negative (Negative); METHADONE Negative (Negative); OPIATES Negative (Negative); PCP Negative (Negative)
[2019-01-29 17:41] LABS: URINE RBC >20 Many /HPF (0-2)
[2019-01-29 17:42] LABS: BACTERIA-REFLEX >30 Many /HPF (None Seen); CASTS None Seen /LPF (None Seen); CRYSTALS None Seen /LPF (None Seen); SQUAMOUS 0-3 Few /LPF (0-3); URINE WBC-REFLEX 0-5 Rare /HPF (0-5)
[2019-01-29 18:15] LABS: ALBUMIN 1.7 g/dL (3.4-5.0); DIRECT BILIRUBIN 5.9 mg/dL (<0.1-0.3); TOTAL PROTEIN 6.5 g/dL (6.4-8.2)
--- NOTE | 2019-01-29 18:45 | NUR ---
INTUBATED BY DR. WILDER SIZE 8.0- 25 AT THE LIP. +COLOR CHANGE OG PLACED. 62 AT THE LIP
[2019-01-29 19:22] LABS: BE(vivo) 8.9 mmol/L (-2 to +3); HCO3 34.1 mmol/L (22.0-26.0); PCO2 48.7 mmHg (35.0-45.0); PO2 154.9 mmHg (80.0-100.0); pH 7.463 (7.360-7.450); sO2 99.1 % (92.0-98.0)
--- NOTE | 2019-01-29 23:24 | NUR ---
Pt admitted to ICU room 241 at 1945 from ED; monitor a-fib/flutter; pt slightly restless, but does not follow commands, withdraws to pain or tactile stimuli; #8.0 ETT initially at 29 cm, withdrawn 2 cm to 27 cm at lip per RT at 1950 per direction of radiologist. Placement verified by CXR read by Dr. Bhatia at bedside. Left EJ IV became dislodged during CXR. Right subclavian triple lumen placed by Dr. Bhatia at 2130 without complication and verified by CXR read by Dr. Bhatia. Pt has open, pink, 2 cm area left buttock. Significant yeast rash right groin area. Scattered bruising and petichae.
[2019-01-30] VITALS (66 sets, daily range): BP systolic 74–123; BP diastolic 32–83
[2019-01-30] MEDS ORDERED: RAYOS5 MG PO (02:55)
[2019-01-30] MEDS ORDERED: NYSTATIN1 EA10 TOP (02:58)
[2019-01-30 05:27] LABS: BE(vivo) 4.7 mmol/L (-2 to +3); PCO2 41.7 mmHg (35.0-45.0); PO2 127.5 mmHg (80.0-100.0); sO2 98.7 % (92.0-98.0)
[2019-01-30 05:55] LABS: ABSOLUTE NEUTROPHILS 4.1 thou/uL (1.4-8.2); BASOPHILS 0.3 % (0.0-2.0); EOSINOPHILS 0.2 % (0.0-3.0); HEMATOCRIT 36.1 % (42.0-52.0); HEMOGLOBIN 11.8 gm/dL (14.0-18.0); LYMPHOCYTES 4.9 % (24.0-44.0); MCH 35.3 pg (26.0-34.0); MCHC 32.7 g/dL (28.0-37.0); MCV 108.1 fL (80.0-100.0); MONOCYTES 3.3 % (1.0-8.0); PLATELET COUNT 95 thou/uL (150-400); POLYS 91.3 % (36.0-66.0); RBC 3.34 mil/uL (4.50-6.00); RDW 19.5 % (10.5-14.5); WBC 4.5 thou/uL (4.0-11.0)
[2019-01-30 06:30] LABS: ALBUMIN 1.4 g/dL (3.4-5.0); CALCIUM 8.5 mg/dL (8.5-10.1); CREATININE 0.8 mg/dL (0.7-1.3); POTASSIUM 4.7 mmol/L (3.5-5.1)
[2019-01-30 06:31] LABS: TOTAL BILIRUBIN 9.1 mg/dL (<0.1-1.0)
--- NOTE | 2019-01-30 07:34 | EKG ---
[address] [address] ELECTROCARDIOGRAM REPORT Name: NELLIBELL BEBO Room #: 241-P ADM IN M.R.#: [id number] Admission: 01/29/19 Attend Phys: Adrián Ferrer MD Discharge: Date of : 62 Report #: [id number] THIS REPORT FOR: //name// [facility] ED Test Date: 2019-01-29 Test Time: 17:16:43 Pat Name: BELL AIKEN Department: Room: [facility] Gender: M Data Base Design Analyst: ken : 1960 Requested By: Bell Mendes Order Number: [id number] MD: Lars Garza Measurements Intervals Tony Rate: 90 P: AL: QRS: -50 QRSD: 169 T: 206 QT: 466 QTc: 571 Interpretive Statements Atrial flutter Left bundle branch block Compared to ECG 01/12/2019 07:57:36 No significant change was found Electronically Signed On 01-30-2019 7:33:50 [employer]IDGE CONTRACT[employer] by Lars Garza [email or web address] <ELECTRONICALLY SIGNED> By: Lars aGrza MD, [facility] 01/30/19 0733 1716 171 Lars Garza MD, [facility] /EPI
--- NOTE | 2019-01-30 07:44 | NUR ---
Pt remains deeply sedated on Propofol 10 mcg/kg/min. On sedation vacation pt keeps eyes closed, moves upper extremities and raises head and shoulders off bed but does not follow any commands. Pt withdraws purposefully to noxious stimuli. Monitor a-fib/flutter rates 38-94, with occasional PVC's, couplets and triplets. Remains in soft wrist restraints bilaterally.
--- NOTE | 2019-01-30 09:58 | NUR ---
If npo next 24-48 hr, would recommend initiate enteral feed of vital high protein at goal rate 65ml/hr
--- NOTE | 2019-01-30 10:04 | NUR ---
Patient admits with AMS from [facility]. patient with recent dc from [facility] to [facility] for care. Patient has a son and dtr both estranged. Patient with hx of ETOH abuse. prior to [facility] patient living in independent apt. he con to have falls at apt. Sp with mother she reports she visited him and he seemed resigned to the fact he needed skilled care. He reported to mother the food was good and he was working with therapy. Mom reports a long time friend who trained him in [employer] business came to visit yesterday. he noted patient not responsive and food tray there for some time he noted he has not eated. He alerted the RN and patient transferred to [facility]. Mon reports in process of POA paperwork but not competed. Mom to visit later today. Niece to take her she does not drive. Plan update to [place].
--- NOTE | 2019-01-30 11:48 | NUR ---
WOUND CARE NOTE; stage 2 pressure injury left buttocks, scant drainage, blanchable, pt sedated, staff auditor MIGUEL present, severe yeast rash bilat groin, perirectal area recommendations; suggest zguard and silicone border drsg daily and prn to left buttocks wound, interdry to groin bilat w/ antifungal powder
--- NOTE | 2019-01-30 17:45 | NUR ---
Pt now opening eyes and following some simple commands when propofol off. Nods head. Wiggles toes. Opens eyes. Weak hand grasp. Pt remains in Afib flutter per monitor. VR 90's-130's. Afebrile. FiO2 weaned down to 30% this am. Lungs clear with bibasilar crackles. Stool large soft unformed stools this shift. Lactulose increased to q 2hr from q 6hr. Rifaximin continued via NG tube. Will place flexiseal if stool becomes liquid. Open wound to left buttock with z guard and mepilex. Nystatin power to panus and right groin--yeast like rash. Greene with 650ml orange urine w/ sediment. Plan of care reviewed. Slight progress this shift with improvement in mentation.
[2019-01-31] VITALS (39 sets, daily range): BP systolic 72–128; BP diastolic 31–73
[2019-01-31 05:41] LABS: CALCIUM 8.3 mg/dL (8.5-10.1); CREATININE 1.4 mg/dL (0.7-1.3); POTASSIUM 4.7 mmol/L (3.5-5.1)
--- NOTE | 2019-01-31 07:19 | NUR ---
Spoke with Radiologist, Dr. Ventura, re: placement of Right SC TLC per chest xray report. stated if their was blood return and flushes easily it is still ok to use. Recommends adjustment over wire before line comes completely out.
--- NOTE | 2019-01-31 07:35 | NUR ---
Dr. Ferrer paged re: continued hypotension since 399. Worsening renal functions and poor uop. Right SC TLC needing repositioning. Awaiting return page.
--- NOTE | 2019-01-31 07:42 | NUR ---
Dr. Ferrer returned page. Will hold diuretics, give 500ml NS bolus and 25gm Albumin IV. Wean propofol if able.
--- NOTE | 2019-01-31 10:15 | NUR ---
TODAYS CXR SHOWS KINK IN SC CENTRAL LINE, MIGUEL RODRIGUEZ ADVISED TO HAVE IR DO OTW EXCHANGE SINCE VACSULAR ACCESS TEAM UNABLE TO DO PLACED SC BY .
--- NOTE | 2019-01-31 13:00 | NUR ---
Dr. Pelaez on rounds. Order rec'd to start Levophed gtt to maintain MAP >60 and SBP>90. Cardizem gtt ordered at 5mg/hr for rate control. 1 liter normal saline over 4 hrs then maint. IVF 1/2 NS at 125 ml/hr.
--- NOTE | 2019-01-31 17:30 | NUR ---
Dr. Pelaez called re: Low urine output. Orders rec'd.
--- NOTE | 2019-01-31 17:45 | NUR ---
Dr. Ferrer called unit for update on patient. Wants to use NS at 100ml/hr and give Albumin 25GM IVPB. Dr. Gilmore consulted.
--- NOTE | 2019-01-31 18:00 | NUR ---
Consult called to Dr. Gilmore. Events of day and since admission reviewed w/ including labs and interventions. Labs ordered for am. OK to change IVF to NS at 100ml/hr and give Albumin 25gm IVPB. No further lasix ordered at this time.
[2019-02-01] VITALS (47 sets, daily range): BP systolic 72–130; BP diastolic 34–84
[2019-02-01 05:50] LABS: ALBUMIN 2.2 g/dL (3.4-5.0); CALCIUM 8.1 mg/dL (8.5-10.1); CREATININE 1.4 mg/dL (0.7-1.3); TOTAL BILIRUBIN 6.8 mg/dL (<0.1-1.0); TOTAL PROTEIN 6.3 g/dL (6.4-8.2)
[2019-02-01 05:51] LABS: POTASSIUM 3.4 mmol/L (3.5-5.1)
--- NOTE | 2019-02-01 11:52 | NUR ---
WOUND CARE F/U ulcer left buttock area healing, less jeniffer, blanchable, new area skin breakdown sacral area, fecal management system in place w/ some leakage noted, suggest zguard daily and prn, cont w/ off loading as much as possible, staff auditor KELECHI present recommendations; zguard to left buttock wound and sacral wound daily and prn
--- NOTE | 2019-02-01 16:06 | NUR ---
FAXED CLINICAL UPDATE TO [facility] OF RECEIVED CONFIRMATION AND LEFT MSG WITH LEXY IN ADM.
--- NOTE | 2019-02-01 17:17 | NUR ---
PT IS SEDATED. SQUEZZED HANDS AND FOLLOWS COMMANDS THIS AM BUT THE REST OF THIS AFTERNOON NOT FOLLOWING COMMANDS . LUNGS ARE CLEAR TO DIMINISHED REMAINS ON THE VENT. MINIMAL SECREAATIONS SUCTIONED CLEAR. FECAL BAG MANGAEMENT. WINKLER TO DD WITH ORANGE COLOR URINE PRESENT. JAUDICE AND ABDOMEN IS ROUND. TUBE FEEINGS AT 25 CC/HR. MEDICATIONS GIVEN FOR HEART RATE TODAY SEE MAR FOR MEDS. CARDIOLOGY SEEN PT AND CONSULTED TODAY. WILL CONTINUE TO ASSESS AND MONITOR PER NURSING
[2019-02-02] VITALS (37 sets, daily range): BP systolic 74–125; BP diastolic 46–84
[2019-02-02 05:24] LABS: HEMATOCRIT 34.4 % (42.0-52.0); MCH 34.8 pg (26.0-34.0); MCV 108.6 fL (80.0-100.0); RBC 3.16 mil/uL (4.50-6.00); RDW 18.8 % (10.5-14.5); WBC 5.4 thou/uL (4.0-11.0)
[2019-02-02 06:00] LABS: ALBUMIN 1.9 g/dL (3.4-5.0); CALCIUM 8.4 mg/dL (8.5-10.1); CREATININE 1.1 mg/dL (0.7-1.3); POTASSIUM 3.1 mmol/L (3.5-5.1)
[2019-02-02 06:18] LABS: PHOSPHORUS 3.1 mg/dL (2.5-4.9)
--- NOTE | 2019-02-02 19:30 | NUR ---
AT 1530, REPORT RECEIVED FROM JORGE NEWMAN RN. CARE ASSUMED. TITRATING DOWN LEVOPHED FOR MAP<60, TUBE FEEDING RESIDUAL DOWN TO 10CC, TUBE FEEDING RESTARTED AT 25CC/HR. MINIMAL PROGRESS.
[2019-02-03] VITALS (48 sets, daily range): BP systolic 90–124; BP diastolic 49–74
[2019-02-03 04:52] LABS: ALBUMIN 1.8 g/dL (3.4-5.0); CALCIUM 8.9 mg/dL (8.5-10.1); CREATININE 1.4 mg/dL (0.7-1.3); PHOSPHORUS 3.4 mg/dL (2.5-4.9)
[2019-02-03 04:55] LABS: ALBUMIN 1.8 g/dL (3.4-5.0); DIRECT BILIRUBIN 4.8 mg/dL (<0.1-0.3); TOTAL PROTEIN 6.1 g/dL (6.4-8.2)
[2019-02-03 04:58] LABS: POTASSIUM 4.5 mmol/L (3.5-5.1)
[2019-02-03 04:59] LABS: TOTAL BILIRUBIN 6.2 mg/dL (<0.1-1.0)
--- NOTE | 2019-02-03 12:45 | NUR ---
WOUND CARE F/U L buttock wound and sacral wound healing, pink granulating tissue sacral wound, pinkisk yellow tissue buttock wound, scant drainage, fecal management system in place, skin tear left forefoot, 1cm x .8cm, w/ yellow slough, scant yellowish drainage, public health staff nurse SALLY present recommendations; cont w/ zguard to buttock and sacral area, aquacel ag to left foot wound, cover w/ border foam drsg, cont w/ off loading, pressure relief
--- NOTE | 2019-02-03 14:30 | NUR ---
New triple lumen catheter placed in the right IJ by IV Nurse. Previous central line right neck removed by IV nurse and pressure applied to site until hemostasis. Chest film obtained to confirm placement of the new line.
[2019-02-03 15:11] LABS: APTT 34.7 Seconds (24.5-32.8); INR 1.8
[2019-02-03 15:17] LABS: FIBRINOGEN 93.9 mg/dL (210-360)
--- NOTE | 2019-02-03 15:58 | NUR ---
CONTINUES ON VENT, WEANING LEVOPHED GTT ABLE WITH PLANS TO WEAN WHEN OFF LEVO PER DR. RODRIGES. [facility] TOVAR UPDATED.
--- NOTE | 2019-02-03 19:00 | NUR ---
Pt moved onto new bed due to malfunction of airflow of previous bed. Levophed weaned down to two mcg/min this shift. Remains on the Propofol for light sedation. Report given to RN assuming care.
[2019-02-04] VITALS (46 sets, daily range): BP systolic 89–119; BP diastolic 47–67
[2019-02-04 06:09] LABS: HEMATOCRIT 31.2 % (42.0-52.0); HEMOGLOBIN 10.4 gm/dL (14.0-18.0); MCH 36.4 pg (26.0-34.0); MCHC 33.3 g/dL (28.0-37.0); MCV 109.4 fL (80.0-100.0); RBC 2.85 mil/uL (4.50-6.00); RDW 18.7 % (10.5-14.5); WBC 6.2 thou/uL (4.0-11.0)
[2019-02-04 06:14] LABS: ALBUMIN 1.6 g/dL (3.4-5.0); CREATININE 1.2 mg/dL (0.7-1.3); PHOSPHORUS 3.1 mg/dL (2.5-4.9); POTASSIUM 4.6 mmol/L (3.5-5.1)
--- NOTE | 2019-02-04 08:43 | HC ---
[facility] [address] [place] [address] CONSULTATION Name: BELL AIKEN Room #: 241-P ADM IN M.R.#: [id number] Admission: 01/29/19 Attend Phys: Adrián Ferrer MD Discharge: Date of : 62 Report #: [id number] THIS REPORT FOR: //name// CC: Daniel Ferrer DATE OF SERVICE: 02/03/2019 REASON FOR CONSULTATION: Uncontrolled type 2 diabetes mellitus. HISTORY OF PRESENT ILLNESS: This is a 58-year-old male patient whose medical background is significant for multiple issues including cirrhosis with end-stage liver disease, atrial fibrillation, cardiomyopathy, type 2 diabetes mellitus and heart failure. The patient resides at a skilled care facility and he was transferred to our hospital on the in an obtunded state where he was found lying unconsciousness. Subsequently, he was admitted and transferred to the ICU where he has since required respiratory support with mechanical ventilation as well as pressor support with Levophed. It appears that the patient at this time is dealing with difficulties pertaining to bilateral lower lobar infiltrates, indicating pneumonia, hepatic encephalopathy. Again, the patient is currently mechanically ventilated, as such was unable to provide answers to my questions or a full medical history. That said, I have thoroughly reviewed his medical records for the past and present clinical care notes, laboratory studies, related clinical elements. An outpatient medication was reviewed and indicated that he was maintained on Lantus insulin 14 units at bedtime in addition to Humalog 10 units a.c. and at bedtime along with a sliding scale. There is no provision on how his blood glucose control has been over the past few weeks. REVIEW OF SYSTEMS: Cannot be obtained at this time due to the patient's sedated and intubated state. PAST MEDICAL HISTORY: 1. Cirrhosis with end-stage liver disease. 2. History of alcohol abuse. 3. Hepatitis C. 4. Esophageal varices. 5. Portal hypertension, status post TIPS procedure. 6. Type 2 diabetes mellitus. 7. Atrial fibrillation. 8. Bilateral hernia repair. 9. CHF. 10. History of GI bleed. [facility] [address] [place] [address] CONSULTATION Name: NELLIBELL BEBO Room #: 241-P [facility] IN .R.#: [id number] Admission: 01/29/19 Attend Phys: Adrián Ferrer MD Discharge: Date of : 62 Report #: [id number] 11. History of hepatic encephalopathy. 12. Ischemic cardiomyopathy. OUTPATIENT MEDICATIONS: Include Lasix 40 mg daily, lactulose 20 grams t.i.d., Humalog supplemental scale in addition to 10 units scheduled basis, Lantus insulin 40 units at bedtime, metoprolol 100 mg daily, vitamin D3 2000 units daily, gabapentin 100 mg b.i.d., ranitidine 150 mg at bedtime. ALLERGIES: ACETAMINOPHEN, IBUPROFEN and NSAIDs. SOCIAL HISTORY: The patient's review of the record indicates that he currently resides at a nursing home care facility. There is no indication of active tobacco use, but again the patient's background is significant for alcohol abuse. PHYSICAL EXAMINATION: GENERAL: male patient, deeply jaundiced, mechanically ventilated and sedated. VITAL SIGNS: Blood pressure is 115/62 mmHg, heart rate is 81 beats per minute, respiration is 18 per minute, temperature 37.4 degrees. CONSTITUTIONAL: The patient is mechanically ventilated. He is sedated. I do not observe restlessness or other indications of pain or discomfort. HEENT: Deeply jaundiced sclerae. No spontaneous extraocular motions. CHEST: Noted for limited air entry, scattered rales, rhonchi. No crackles. NECK: Negative for lymphadenopathy or thyromegaly. HEART: Distant heart sounds. Regular rate and rhythm for the most part. No murmurs. ABDOMEN: Obese, soft, lax. No guarding. No organomegaly. Sluggish bowel sounds. EXTREMITIES: Lower extremity exam, bilateral ankle edema, pitting. No skin breaks, ulcerations or other deformities. Pedal pulses are faint. NEUROLOGIC: Sedated, unable to cooperate with the neurologic exam. SKIN: Noted for deep generalized jaundice, but otherwise no ulceration or other major abnormality. LABORATORY DATA: Blood glucose values have consistently been over 200 mg/dL, often in the high 200 to mid 300 mg/dL range. Potassium 4.5, sodium 135, chloride 100, CO2 of 32, anion gap 3, BUN 33, creatinine 1.4, glucose 296. Total bilirubin 6.2, direct bilirubin 4.8, calcium 8.9, phosphorus 3.4, magnesium 1.8, alkaline phosphatase 134, total protein 6.1, albumin 1.8, EGFR 52, ammonia 60. Lactic acid 3.0. BNP 2298. On 01/14/2019, free T4 was 1.4, TSH 4.771. Hemoglobin A1c on January 11 was 7.4%. White blood count 5.4, hemoglobin 11, hematocrit 34.4, platelets 116. ASSESSMENT AND PLAN: 1. Type 2 diabetes mellitus. The patient has a background that is noted for [address] [address] CONSULTATION Name: BELL AIKEN Room #: 241-P [facility] IN MMarilyn.#: [id number] Admission: 01/29/19 Attend Phys: Adrián Ferrer MD Discharge: Date of : 62 Report #: [id number] longstanding type 2 diabetes mellitus. I had seen him during a hospital admission over a month ago and I know from that previous interaction with the patient that there have been significant compliance issues, whereby he would go completely off of prescribed treatment regimens. He did well with insulin therapy while at the hospital during that admission and was released to his skilled care facility on a basal bolus regimen that is noted up above in the HPI. 2. Currently, the patient is intubated, but had been started on continuous tube feed support over 2 days ago and is currently at a rate of 45 mL per hour. Again, the patient will need to be covered with a basal bolus set up and I will do so in the form of glargine 32 units daily in addition to coverage with Humalog supplemental scale 8 units q. 6 hours to be combined with the necessary supplement via Humalog supplemental scale, low intensity. Blood glucose monitoring will commence a.c. and at bedtime. In the event that tube feeds are interrupted or held, scheduled insulin coverage will need to be also held. Further adjustments to his regimen will be carried out based on his responsiveness and overall outlook. 3. Respiratory failure. The patient is currently mechanically ventilated. He is maintained on methylprednisolone 40 mg q. 12 hours, which I hope would help with his overall outlook, but will also necessitate we cover him adequately with insulin for the expected glycemic down fall from disuse. 4. Pulmonary care. The Pulmonary team is following. 5. Heart failure. The patient has had issues with hypotension and is currently requiring support with pressor therapy in the form of Levophed, which he is taking as 4 mcg currently. He is currently on Cardizem and metoprolol. 6. End-stage liver disease. This is a maguire issue in this patient's background as he has advanced end-stage liver disease with full blown manifestations of this situation including portal hypertension, variceal bleed and severe encephalopathy. The patient is currently on lactulose therapy and is being followed by the GI Service. I certainly appreciate this consultation by Dr. Abel. I have reviewed the patient's electronic medical records including present and past clinical care notes, laboratory notes and other pertinent clinical data for over 35 minutes. <ELECTRONICALLY SIGNED> By: Michelle Cespedes MD 02/04/19 0843 0908 0941 Michelle Cespedes MD /nt
--- NOTE | 2019-02-04 14:07 | NUR ---
0730-Pt was sedated. Propofol gtt @25mcg. Soft restraints x 2. R Pupils reacted sluggishly. On vent w/ OG tube. LS clear. A. Flutter w/ 60s to 70s of HR. Levo was turned off since 06am since MAP>60s. Greene in place w/ pink color. Fecal management system in place. TF was running w/ Vital HP @65 0900-Checked residual >250. Held TF. 0945-Propofol was titrated to 12.9. 1140-Sedation vacation started. Pt alert, followed commands appropriately. Kept trying to touch ET tube. VSS. 1230-Rechecked residual -about 50ml. 1235-Propofol resumed @22.9 TF was resumed @30 as GI doctor recommended. Fecal system bag was changed. 1415-Propofol titrated to 11.5. Family were at bedside.
[2019-02-05] VITALS (86 sets, daily range): BP systolic 75–128; BP diastolic 43–75
[2019-02-05 06:04] LABS: HEMATOCRIT 31.3 % (42.0-52.0); HEMOGLOBIN 10.4 gm/dL (14.0-18.0); MCH 36.3 pg (26.0-34.0); MCHC 33.3 g/dL (28.0-37.0); MCV 108.9 fL (80.0-100.0); RBC 2.87 mil/uL (4.50-6.00); RDW 18.4 % (10.5-14.5); WBC 8.3 thou/uL (4.0-11.0)
[2019-02-05 06:29] LABS: ALBUMIN 1.4 g/dL (3.4-5.0); CALCIUM 8.3 mg/dL (8.5-10.1); CREATININE 1.1 mg/dL (0.7-1.3); PHOSPHORUS 3.6 mg/dL (2.5-4.9)
[2019-02-05 06:31] LABS: POTASSIUM 4.4 mmol/L (3.5-5.1)
--- NOTE | 2019-02-05 13:44 | NUR ---
PROPOFOL TAPPED OFF THIS AM FOR VACATION SEDATION. WILL FOLLOW SIMPLE COMMANDS, RAISES HEAD OFF PILLOW. TRACTING AND OPENS EYES SPONTANOUSOULY. MEAN ARTERIAL PRESSURE IN THE 50'S THIS AM, LEVOPHED STARTED AND TITRATED TO KEEP MAP GREATER THAN 65 MMHG. CARDIZEM DRIP TO KEEP VENT RESPONSE OF A FIB LESS THAN 100
--- NOTE | 2019-02-05 19:39 | NUR ---
PATIENT MORE ALERT AND RESPONSIVE, LIFTING HEAD OFF OF PILLOW. PROPOFOL TITRATED FOR RASS SCORE OF -1 TO 1. MONITOR SHOWING AFIB FLUTTER. CARDIZEM OFF HEART RATE SHOWING AFLUTTER WITH A VENTICULAR RESPONSE 46 TO 55, BUT TITRATED TO 10 MG/HR VENTRICULAR RESPONSE IS 100'S TO 110'S. LEVOPHED DRIP CONTINUES TO KEEP MAP GREATER THAN 65 AND URINE OUTPUT GREATER THAN 4O ML/HR. FECAL INCONTIENCE MANAGEMENT SYSTEM INTACT, PASSING FLATUS.
[2019-02-06] VITALS (72 sets, daily range): BP systolic 89–135; BP diastolic 55–84
--- NOTE | 2019-02-06 04:49 | NUR ---
INTUBATED AND ON VENT; SEDATED WITH PROPOFOL. REMAINS ON LEVO GTT. PT OFF AND ON CARDIZEM THROUGHOUT THE NIGHT; PT'S HR WOULD DROP TO 40s FOR A PERIOD THEN EVENTUALLY INCREASE AGAIN. TUBE FEEDINGS INFUSING, PT HAS BEEN HAVING SOMEWHAT RESIDUALS (150 CC), SO GOAL HAS NOT BEEN REACHED YET. WILL CONTINUE TO MONITOR.
[2019-02-06 05:29] LABS: HEMATOCRIT 36.1 % (42.0-52.0); HEMOGLOBIN 11.9 gm/dL (14.0-18.0); MCH 35.2 pg (26.0-34.0); MCHC 32.8 g/dL (28.0-37.0); MCV 107.2 fL (80.0-100.0); RBC 3.37 mil/uL (4.50-6.00); RDW 17.6 % (10.5-14.5); WBC 9.5 thou/uL (4.0-11.0)
[2019-02-06 05:43] LABS: ALBUMIN 1.5 g/dL (3.4-5.0); CALCIUM 8.6 mg/dL (8.5-10.1); CREATININE 1.2 mg/dL (0.7-1.3); PHOSPHORUS 4.6 mg/dL (2.5-4.9); TOTAL PROTEIN 5.5 g/dL (6.4-8.2)
--- NOTE | 2019-02-06 13:09 | NUR ---
ASSUMED CARE @ 0700 02/06/19, PT ASSESSMENTS AND VSS COMPLETE PER ICU PROTOCOL. SEDATION VACATION DONE @ 0740 AND DURING CPAP TRIAL @ [id number]. PT HR DROPPING IN THE 40'S, DR HANKINS HERE TO SEE PT, CARDIZEM PO AND GTT CHANGED TO PRN ORDERS, WILL CONTINUE TO MONITOR.
[2019-02-07] VITALS (51 sets, daily range): BP systolic 81–120; BP diastolic 46–76
[2019-02-07 05:45] LABS: HEMATOCRIT 37.4 % (42.0-52.0); HEMOGLOBIN 12.2 gm/dL (14.0-18.0); MCH 35.4 pg (26.0-34.0); MCHC 32.5 g/dL (28.0-37.0); MCV 108.8 fL (80.0-100.0); RBC 3.44 mil/uL (4.50-6.00); RDW 17.4 % (10.5-14.5); WBC 6.9 thou/uL (4.0-11.0)
[2019-02-07 06:01] LABS: ALBUMIN 1.3 g/dL (3.4-5.0); CALCIUM 8.4 mg/dL (8.5-10.1); CREATININE 1.1 mg/dL (0.7-1.3); PHOSPHORUS 5.1 mg/dL (2.5-4.9); POTASSIUM 3.8 mmol/L (3.5-5.1)
--- NOTE | 2019-02-07 07:41 | NUR ---
INTUBATED AND ON VENT; SEDATED WITH PROPOFOL. PT OFF LEVO AND CARDIZEM GTTS SINCE YESTERDAY MORNING. HR WAS >110 SUSTAINED THIS MORNING, AND PRN PO DOSE OF CARDIZEM GIVEN. TUBE FEEDINGS RESTARTED AT LOW RATE. RESIDUALS CONTINUED TO BE LOWER, SO RATE WAS ADVANCED, BUT HAS NOT REACHED THE GOAL YET. WILL CONTINUE TO MONITOR.
--- NOTE | 2019-02-07 08:05 | NUR ---
SEDATION VACATION IN PROGRESS, PLACED ON CPAP TRIAL WITH FI02-30%, PEEP AND PRESSURE SUPPORT BOTH 5, TIDAL VOLUMES IN MID 400'S, RR-16. PT TRACKING WITH EYES, ALERT, FOLLOWS COMMANDS WITH ALL EXTREMITIES. TUBE FEEDING OFF FOR POTENTIAL EXTUBATION.
--- NOTE | 2019-02-07 09:44 | HC ---
[facility] Elaine [place] [address] CONSULTATION Name: BELL AIKEN Room #: 241-P ADM IN M.R.#: [id number] Admission: 01/29/19 Attend Phys: Adrián Ferrer MD Discharge: Date of : 62 Report #: [id number] THIS REPORT FOR: //name// CC: Daniel Ferrer REASON FOR THE CONSULTATION: Elevated creatinine. REASON FOR THE PRESENTATION: Presented from his facility because of mental status changes. HISTORY OF PRESENT ILLNESS: Those were obtained from the medical chart as the patient is currently intubated and not able to provide me with any details. He is a 58-year-old with past medical history of cardiomyopathy, ejection fractions of around 35%. He is also known to have end-stage liver disease, status post TIPS procedure. He was brought from his nursing facility because of unresponsiveness. The patient has an extensive past medical history including and not limited to ethanol abuse, hepatitis C, esophageal varices due to portal hypertension. He is also known to have AFib with diabetes mellitus and noncompliance with medical care. He is status post AICD. On presentation, the patient was intubated to protect his airways. His ammonia level was extremely high and he was admitted to the Intensive Care Unit to further evaluate. Creatinine on presentation was 0.8. The patient has required IV fluid for hemodynamic stability and grew gram-negative rods in his blood. Over the last few days, the patient has been getting hypotensive, with increasing anasarca. He was also going into increased vascular congestions on his lung x-ray suggestive of pulmonary edema. He received a CT chest without contrast back on 01/29/2019. He required vasopressors including Levophed. He went into AFib and was initiated on Cardizem. He is currently maintained on ceftriaxone. He is also on steroids along with lactulose, rifaximin for his ongoing liver issues. I am being consulted to manage his acute kidney injury, rising creatinine and anasarca. PAST MEDICAL HISTORY: Extensive and includes the followin. End-stage liver disease. 2. Status post TIPS. 3. Atrial fibrillation. 4. Cardiomyopathy. 5. Diabetes mellitus. 6. All complications of end-stage liver disease including esophageal varices, portal hypertension, GI bleeding, hepatic encephalopathy. 7. Status post right-sided thoracentesis. 8. Status post AICD placement and removal due to infection. 9. Liver cirrhosis. SIGNIFICANT FAMILY HISTORY: Unable to obtain due to the patient[place] [address] CONSULTATION Name: BELL AIKEN Room #: 241-P [facility] IN M.R.#: [id number] Admission: 01/29/19 Attend Phys: Adrián Ferrer MD Discharge: Date of : 62 Report #: [id number] SOCIAL HISTORY: Resides in a nursing facility, rest unable to obtain due to the patient's current mental status. MEDICATIONS: Outpatient medications include: 1. Lasix. 2. Lactulose. 3. Insulin. 4. Metoprolol. 5. Ranitidine. ALLERGIES: Listed NSAIDs, acetaminophen. REVIEW OF SYSTEMS: Unobtainable given the patient's current mental status. PHYSICAL EXAMINATION: GENERAL: He is intubated. VITAL SIGNS: Blood pressure is marginal on Levophed at 95/53. Pulse rate is in the 120. HEAD AND NECK: ET tube present. CHEST: Decreased air entry bilaterally with crackles. CARDIOVASCULAR: No rub detected, distant S1, S2. ABDOMEN: Soft, nontender. LOWER EXTREMITIES: Extensive edema. LABORATORY VALUES: Platelets 95,000, hemoglobin 11.8. Sodium 135, potassium 3.4, BUN 30, creatinine 1.4, total bilirubin 6.8. ASSESSMENT/IMPRESSION AND PLAN: 1. Acute kidney injury in the setting of end-stage liver disease. 2. Anasarca. 3. Respiratory failure. 4. All complications of cirrhosis including hepatic encephalopathy, portal hypertension, variceal bleeding. 5. Cardiomyopathy with ejection fractions of around 35%. 6. Discontinue IV fluid. 7. Initiate IV diuresis. 8. Use albumin and pressors for blood pressure support. 9. Management of his other comorbid conditions per the primary team. Poor prognosis. <ELECTRONICALLY SIGNED> By: Thee Gilmore MD 02/07/19 0944 [id number] Thee Gilmore MD /nt
[2019-02-07 10:20] LABS: BE(vivo) 10.4 mmol/L (-2 to +3); PCO2 46.4 mmHg (35.0-45.0); PO2 81.1 mmHg (80.0-100.0); pH 7.495 (7.360-7.450); sO2 96.6 % (92.0-98.0)
--- NOTE | 2019-02-07 15:42 | NUR ---
CPAP TRIAL WELL TOLERATED THIS AM. ABG'S OBTAINED, DR. STEWART AWARE. PT REPLACED ON ASSIST CONTROL, AFTER ABG'S RESULTED. PAGED DR. STEWART TO UPDATE. PER RT, DR. STEWART TEXTED PT ABLE TO EXTUBATE. RN LEFT MESSAGE WITH DR. STEWART REGARDING CONFIRMATION ORDER FOR EXTUBATION. AWAITING RESPONSE. REPORT GIVEN TO LACY VALVERDE RN.
--- NOTE | 2019-02-07 17:08 | EKG ---
[address] [address] ELECTROCARDIOGRAM REPORT Name: BELL AIKEN Room #: 241-P ADM IN M.R.#: [id number] Admission: 01/29/19 Attend Phys: Adrián Ferrer MD Discharge: Date of : 62 Report #: [id number] THIS REPORT FOR: //name// [facility] Test Date: 2019-02-07 Test Time: 09:04:16 Pat Name: BELL AIKEN Department: Room: 241 P Gender: M Master Tax Advisor: VINAY : 1960 Requested By: Michelle Santos Order Number: [id number] MD: Lars Garza Measurements Intervals [place] Rate: 46 P: CT: QRS: 163 QRSD: 176 T: 219 QT: 539 QTc: 472 Interpretive Statements Atrial flutter Left bundle branch block Compared to ECG 01/29/2019 17:16:43 No significant change was found Electronically Signed On 02-07-2019 17:08:07 REMARKETING REP by Lars Garza [email or web address] <ELECTRONICALLY SIGNED> By: Lars Garza MD, [facility] 02/07/19 1708 0904 0904 Lars Garza MD, [facility] /EPI
[2019-02-08] VITALS (23 sets, daily range): BP systolic 70–114; BP diastolic 34–87
[2019-02-08 05:27] LABS: HEMATOCRIT 37.5 % (42.0-52.0); HEMOGLOBIN 12.3 gm/dL (14.0-18.0); MCH 35.4 pg (26.0-34.0); MCHC 32.6 g/dL (28.0-37.0); MCV 108.6 fL (80.0-100.0); RBC 3.46 mil/uL (4.50-6.00); RDW 17.7 % (10.5-14.5); WBC 5.9 thou/uL (4.0-11.0)
[2019-02-08 05:34] LABS: ALBUMIN 1.4 g/dL (3.4-5.0); CALCIUM 8.4 mg/dL (8.5-10.1); CREATININE 1.2 mg/dL (0.7-1.3); PHOSPHORUS 5.4 mg/dL (2.5-4.9)
--- NOTE | 2019-02-08 10:49 | NUR ---
WOUND CARE F/U ASSESSED WOUNDS W/ WASTEWATER ANALYST Zenaida HOUSE BUTTOCK AND SACRAL WOUND HEALING, PT AWAKE, ALERT, STATES HE INJURED L FOOT W/ A FALL, 4 AREAS ABRASIONS NOTED W/ SLOUGH TISSUE, SCANT YELLOWISH DRAINAGE, ALL <1CM IN SIZE, PHOTOS TAKEN, FECAL MANAGEMENT SYSTEM IN PLACE RECOMMENDATIONS; CONT W/ ZGUARD TO BUTTOCK AND SACRAL WOUND DAILY AND PRN, AQUACEL AG AND BORDER FOAM TO LEFT FOOT WOUND M/W/F AND PRN, CONT W/ OFF LOADING PRESSURE RELIEF, TURN SCHEDULE Q 2HOURS
--- NOTE | 2019-02-08 15:04 | NUR ---
FOLLOWING FOR DC PLANNING. CLINICAL INFO REVIEWED. PT EXTUATED 02/07. THERAPIES REORDERED TODAY. PER HOSPITALIST, NO W/E DC PLANNED. REQUESTED DC BUTTON CUTTER UPDATED [facility] PT ADMITTED TO [facility] FROM [facility] AT [facility].
--- NOTE | 2019-02-08 15:47 | NUR ---
FAXED CLINICAL UPDATE TO [facility] SPOKE WITH LEXY IN ADM SHE RECEIVED UPDATE AND THAT PT WILL BE HERE ALL WEEKEND. DP TO FOLLOW.
[2019-02-09] VITALS (25 sets, daily range): BP systolic 66–110; BP diastolic 46–76
--- NOTE | 2019-02-09 05:17 | NUR ---
ASSUMED PT CARE AT 1900. PT IS SLEEPING UPON ENTRY TO THE ROOM. NO SIGN OF DISTRESS NOTED. PT AWAKES. NO FAMILY AT BEDSIDE. PT IS ALERT BUT CONFUSED. FALL PRECAUTION IN PLACE. ASSESSMENT COMPLETED AND DOCUMENTED. DENIES ANY PAIN. SCHEDULED MEDS ADMINISTERED TO PT. PT TOLERATED PO INATAKE. AFIB CONTROLLED, VITAL SIGNS STABLE, DENIES ANY FURTHER NEEDS AT THIS TIME, CONTINUE TO MONITOR PATIENT.
[2019-02-09 05:19] LABS: HEMATOCRIT 36.7 % (42.0-52.0); HEMOGLOBIN 11.8 gm/dL (14.0-18.0); MCH 35.1 pg (26.0-34.0); MCHC 32.2 g/dL (28.0-37.0); MCV 109.2 fL (80.0-100.0); RBC 3.36 mil/uL (4.50-6.00); RDW 17.8 % (10.5-14.5); WBC 8.3 thou/uL (4.0-11.0)
[2019-02-09 05:33] LABS: ALBUMIN 1.5 g/dL (3.4-5.0); ANION GAP < 0 mmol/L (7-16); BUN 63 mg/dL (7-18); CALCIUM 8.7 mg/dL (8.5-10.1); CHLORIDE 110 mmol/L (98-107); CO2 40 mmol/L (21-32); CREATININE 1.2 mg/dL (0.7-1.3); GLUCOSE 221 mg/dL (74-106); PHOSPHORUS 4.7 mg/dL (2.5-4.9); POTASSIUM 4.3 mmol/L (3.5-5.1); SODIUM 149 mmol/L (136-145)
[2019-02-09 07:26] LABS: ALBUMIN 1.5 g/dL (3.4-5.0); DIRECT BILIRUBIN 6.1 mg/dL (<0.1-0.3); TOTAL PROTEIN 5.7 g/dL (6.4-8.2)
[2019-02-09 07:29] LABS: TOTAL BILIRUBIN 8.5 mg/dL (<0.1-1.0)
[2019-02-09 10:48] LABS: INR 1.8; PROTIME 18.3 Seconds (9.3-11.4)
--- NOTE | 2019-02-09 20:12 | NUR ---
PATIENT PROGRESSING HE IS MORE RESPONSIVE, STATING WHEN HE NEEDS TO BE REPOSITIONED. TAKING DIET WITHOUT NAUSEA OR EMESIS, THICKEN LEMON WATER ENCOURAGE SERUM SODIUM IS INCREASING. MONITOR REMAINS A FIB WITH SHORT PERIODS OF INTERMITTENT AFLUTTER. CARDIZEM GIVEN FOR HR GREATER THAN 110 BEATS PER MIN. CONTINUES TO HAVE LOOSE STOOLS. URINE OUTPUT 1525 FOR THE SHIFT. PATIENT INFORMED OF POC AND REASSURANCE GIVEN
[2019-02-10] VITALS (18 sets, daily range): BP systolic 91–114; BP diastolic 23–94
[2019-02-10 04:20] LABS: HEMATOCRIT 35.5 % (42.0-52.0); HEMOGLOBIN 11.5 gm/dL (14.0-18.0); MCH 35.4 pg (26.0-34.0); MCHC 32.3 g/dL (28.0-37.0); MCV 109.6 fL (80.0-100.0); RBC 3.24 mil/uL (4.50-6.00); RDW 17.3 % (10.5-14.5); WBC 9.9 thou/uL (4.0-11.0)
[2019-02-10 04:24] LABS: ALBUMIN 1.5 g/dL (3.4-5.0); CALCIUM 9.2 mg/dL (8.5-10.1); CREATININE 1.1 mg/dL (0.7-1.3); PHOSPHORUS 3.7 mg/dL (2.5-4.9); POTASSIUM 4.4 mmol/L (3.5-5.1)
--- NOTE | 2019-02-10 07:44 | NUR ---
PT ALERT AND AWAKE ALL NIGHT. NO COMPLAIN OF PAIN. PT ORIENTED X3. HEART RATE ELEVATED TO MAX 130'S AT NIGHT. CARDIZEM IV PUSH GIVEN. PT SLOWLY PROGRESSING TOWARDS GOALS. CHART CHECK. REPORT GIVEN TO MICHAEL LEBRON.
--- NOTE | 2019-02-10 16:21 | NUR ---
PT HR ELEVATED 120-130'S THIS AM. PRN CARDIZEM GIVEN ORDERED AND HR IMPROVED. ORDER TO TRANSFER TO CC TELE. REPORT CALLED TO BOO RODRIGUEZ, 3W. PROGRESSING TOWARDS GOALS PER PLAN OF CARE.
--- NOTE | 2019-02-10 18:24 | NUR ---
PT WAS TRANSFERRED FROM ICU TO ROOM 352 AROUND 1600. PT HAS CENTRAL LINE, RECTAL TUBE AND WINKLER.
[2019-02-11] VITALS (7 sets, daily range): BP systolic 94–129; BP diastolic 57–93
[2019-02-11 03:44] LABS: HEMATOCRIT 36.2 % (42.0-52.0); HEMOGLOBIN 11.6 gm/dL (14.0-18.0); MCH 35.4 pg (26.0-34.0); MCHC 32.1 g/dL (28.0-37.0); MCV 110.4 fL (80.0-100.0); RBC 3.28 mil/uL (4.50-6.00); RDW 16.9 % (10.5-14.5)
[2019-02-11 03:51] LABS: ALBUMIN 1.5 g/dL (3.4-5.0); CALCIUM 8.7 mg/dL (8.5-10.1); PHOSPHORUS 3.5 mg/dL (2.5-4.9); POTASSIUM 4.5 mmol/L (3.5-5.1)
--- NOTE | 2019-02-11 04:08 | NUR ---
TURNS AND CLEANING. THE FECAL MANAGEMENT SYSTEM IS DRAINING SEMI LIQUID STOOL. HE IS RESTING CALMLY TONIGHT. HIS THROAT DISCOMFORT HAS CLEARED DURING THE NIGHT. BARRIER CREAM APPLIED EACH TIME HE IS TURNED. HE IS HEAVEY AND REQUIRES EXTRA TIME. CAREPLAN REVIWED.
--- NOTE | 2019-02-11 16:17 | NUR ---
ASSUMED CARE OF PT AT 0700. PT LETHARGIC BUT AROUSABLE. EATING THICKENED DIET W/ ASSISTANCE. LOOSE STOOLS W/ FECAL TUBE IN PLACE. TURNED Q2H AND PRN. SUGARS CONTROLLED. MAINTENANCE FLUIDS INFUSING PER ORDER. PALLIATIVE CONSULT ON WEDNESDAY. AFLUTTER ON TELEMETRY. VITALS STABLE. WILL CONT TO MONITOR.
[2019-02-11 20:00] LABS: HEMATOCRIT 37.4 % (42.0-52.0); MCH 35.3 pg (26.0-34.0); MCHC 32.1 g/dL (28.0-37.0); RBC 3.4 mil/uL (4.50-6.00); WBC 14.3 thou/uL (4.0-11.0)
[2019-02-11 20:02] LABS: BE(vivo) 12.9 mmol/L (-2 to +3); HCO3 38.1 mmol/L (22.0-26.0); PCO2 50.7 mmHg (35.0-45.0); PO2 74.8 mmHg (80.0-100.0); pH 7.494 (7.360-7.450); sO2 95.8 % (92.0-98.0)
[2019-02-11 20:14] LABS: CALCIUM 9.1 mg/dL (8.5-10.1); CREATININE 1.1 mg/dL (0.7-1.3); POTASSIUM 4.8 mmol/L (3.5-5.1)
[2019-02-11 20:20] LABS: ALBUMIN 1.5 g/dL (3.4-5.0); TOTAL BILIRUBIN 9.9 mg/dL (<0.1-1.0); TOTAL PROTEIN 5.6 g/dL (6.4-8.2)
--- NOTE | 2019-02-11 22:40 | NUR ---
Pt transferred to Rm 240, ammonia level at 168, he is nonresponsive to all stimuli. Monitor reads A-Fib/flutter rates up to low 120's. O2 at 3 L/m, lungs are coarse, respirations are labored, sats at 95% currently. He is jaundiced, skin is cool, left sided generalized edema to bilateral upper and lower extremities is noted. Fecal management system is in place, to receive a lactulose enema. Greene catheter is patent, draining dark yellow/cloudy urine. Will continue to monitor.
[2019-02-12] VITALS (34 sets, daily range): BP systolic 78–113; BP diastolic 45–79
[2019-02-12 05:55] LABS: ABSOLUTE NEUTROPHILS 14.6 thou/uL (1.4-8.2); BASOPHILS 0.9 % (0.0-2.0); EOSINOPHILS 0.1 % (0.0-3.0); HEMATOCRIT 40.4 % (42.0-52.0); HEMOGLOBIN 12.8 gm/dL (14.0-18.0); MCH 35.1 pg (26.0-34.0); MCHC 31.8 g/dL (28.0-37.0); MCV 110.3 fL (80.0-100.0); MONOCYTES 6.5 % (1.0-8.0); POLYS 90.5 % (36.0-66.0); RBC 3.66 mil/uL (4.50-6.00); RDW 17.1 % (10.5-14.5); WBC 16.2 thou/uL (4.0-11.0)
[2019-02-12 06:17] LABS: ALBUMIN 1.5 g/dL (3.4-5.0); CALCIUM 9.2 mg/dL (8.5-10.1); CREATININE 1.1 mg/dL (0.7-1.3); PHOSPHORUS 3.4 mg/dL (2.5-4.9); POTASSIUM 4.9 mmol/L (3.5-5.1); TOTAL PROTEIN 5.9 g/dL (6.4-8.2)
[2019-02-12 06:20] LABS: TOTAL BILIRUBIN 10.5 mg/dL (<0.1-1.0)
[2019-02-12 06:46] LABS: PLATELET COUNT 63 thou/uL (150-400)
--- NOTE | 2019-02-12 12:52 | EKG ---
[address] [address] ELECTROCARDIOGRAM REPORT Name: BELL AIKEN Room #: 240-P ADM IN M.R.#: [id number] Admission: 01/29/19 Attend Phys: Adrián Ferrer MD Discharge: Date of : 62 Report #: [id number] THIS REPORT FOR: //name// [facility] Test Date: 2019-02-11 Test Time: 19:32:18 Pat Name: BELL AIKEN Department: Room: 240 Gender: M Clipper Operator: sv : 1960 Requested By: Tova Alexis Order Number: [id number] MD: Lars Garza Measurements Intervals [place] Rate: 100 P: NV: QRS: -105 QRSD: 180 T: 195 QT: 395 QTc: 510 Interpretive Statements Atrial flutter Left bundle branch block Compared to ECG 02/07/2019 09:04:16 No significant change was found Electronically Signed On 02-12-2019 12:52:14 PRESSER FIRST by Lars Garza [email or web address] <ELECTRONICALLY SIGNED> By: Lars Garza MD, [facility] [id number] Lars Garza MD, [facility] /EPI
--- NOTE | 2019-02-12 13:46 | NUR ---
Dr. Garza called. re HR 40s BP 108/57. Notified in aflutter. No new orders.
--- NOTE | 2019-02-12 14:43 | NUR ---
Pt mother called to get update on pt. Reported to her pt not waking up. Family would like to talk to . Dr. Toni graff.
--- NOTE | 2019-02-12 18:19 | NUR ---
ASSUMED CARE @ 0700 02/12/19, PT ASSESSMENTS AND VSS COMPLETE PER ICU PROTOCOL. PT MOTHER HERE DURING SHIFT TO VISIT WITH PT, PT MOM REQUESTING TO TALK TO HOSPITALIST, DR NITIN CARVAJAL TWICE. NO CALL BACK AT THIS TIME.
[2019-02-13] VITALS (22 sets, daily range): BP systolic 95–140; BP diastolic 54–96
--- NOTE | 2019-02-13 04:43 | NUR ---
NO OVERNIGHT EVENTS. PT. REMAINS UNRESPONSIVE AND IS NOT FOLLOWING COMMANDS. WILL OCCASIONALLY OPEN EYES. ASSESSMENTS AND VITAL SIGNS CHARTED. CONTINUE TO FOLLOW POC. WILL CONTINUE TO MONITOR.
[2019-02-13 05:13] LABS: ALBUMIN 1.4 g/dL (3.4-5.0); CREATININE 1.1 mg/dL (0.7-1.3); POTASSIUM 4.6 mmol/L (3.5-5.1); TOTAL PROTEIN 5.7 g/dL (6.4-8.2)
[2019-02-13 05:19] LABS: TOTAL BILIRUBIN 12.3 mg/dL (<0.1-1.0)
--- NOTE | 2019-02-13 10:02 | NUR ---
WOUND CARE F/U assessed pt w/ staff forester, unresponsive, l foot wound w/ 4 small abrasions, all <.4cm, yellow slough tissue present, scant yellowish drainage, l buttock wound same, sacral area less jeniffer, nonblanchable, per staff possible palliative care, fecal management system in place RECOMMENDATIONS; cont w/ zguard to l buttock wound and sacrum daily and prn, aqualcel ag to l foot ulcers, cover w/ silicone border renita, staff forester informed
--- NOTE | 2019-02-13 18:31 | NUR ---
ASSUMED CARE @ 0700 02/13/19, PT ASSESSMENTS AND VSS COMPLETE PER ICU PROTOCOL. PT CODE STATUS CHANGED TO A NO CODE AFTER DR WHITTINGTON SPOKE TO MOTHER OF PT. DR HEATH @ BEDSIDE TO SEE PT. END OF LIFE MEETING TOMORROW, WILL PASS THIS ON TO NURSING STAFF.
[2019-02-14] VITALS (27 sets, daily range): BP systolic 89–146; BP diastolic 47–99
[2019-02-14 05:43] LABS: ALBUMIN 1.4 g/dL (3.4-5.0); ANION GAP < 0 mmol/L (7-16); BUN 58 mg/dL (7-18); CALCIUM 8.8 mg/dL (8.5-10.1); CHLORIDE 105 mmol/L (98-107); CO2 38 mmol/L (21-32); CREATININE 1.1 mg/dL (0.7-1.3); GLUCOSE 249 mg/dL (74-106); PHOSPHORUS 3.5 mg/dL (2.5-4.9); POTASSIUM 4.8 mmol/L (3.5-5.1); SODIUM 142 mmol/L (136-145)
[2019-02-14 05:53] LABS: ALBUMIN 1.4 g/dL (3.4-5.0); DIRECT BILIRUBIN 9.5 mg/dL (<0.1-0.3); TOTAL BILIRUBIN 13.6 mg/dL (<0.1-1.0); TOTAL PROTEIN 5.5 g/dL (6.4-8.2)
[2019-02-14 05:55] LABS: PROTIME 59.4 Seconds (9.3-11.4)
--- NOTE | 2019-02-14 06:00 | NUR ---
PT NO RESPONSE TO PAIN. AGONAL BREATHING. PT TACHYCARDIC THIS AM. PT HAVING BLOOD TINGED MUCOUS SECRETIONS AND BLOODY STOOL X1. PALLIATIVE CARE MEETING TODAY. CHART CHECK. REPORT GIVEN TO MICHAEL ALMANZA.
[2019-02-14 06:13] LABS: INR 5.8
--- NOTE | 2019-02-14 16:40 | NUR ---
met with patients mother, RN, Dr Ferguson and cousin. Dr Ferguson reviewed poc and patients current condition. Mother agreeable to pallative care. [facility] eval in am. Dr Ferguson to discontinue some medications. Outside DNR form on chart. Casemgt to follow in am with mother.
--- NOTE | 2019-02-14 16:57 | NUR ---
FAXED REFERRAL TO HOSPICE HOUSE RECEIVED CONFIRMATION AND SPOKE WITH FERNANDO IN ADM TO EVAL PT TOMORROW 02/15. DP TO FOLLOW.
--- NOTE | 2019-02-14 17:12 | NUR ---
DR FARIAS SPOKE WITH MOTHER AND COUSIN IN REGARDS TO PALLIATIVE CARE, MOTHER WISHES TO PROCEED WITH COMFORT CARE AND ASKED IF HOSPICE HOUSE WAS AN OPTION. CASE MANAGEMENT WILL SET UP FOR AN EVALUATION IN THE AM.
--- NOTE | 2019-02-14 19:51 | NUR ---
PATIENT APPEARS MORE AIR HUNGERY USING ACCESSORY MUSCLES. MORPHINE GIVEN NEEDED. REMAINS OBTUNDENT. WILL OPEN EYES TO ORAL CARE. ORALLY SUCTIONED NEEDED. FECAL INCONTIENTENCE SYSTEM DC'D FOR COMFORT. MONITOR SHOWING A FLUTTER. REASSURANCE GIVEN TO PATIENT.
--- NOTE | 2019-02-15 00:22 | NUR ---
PATIENT NON-RESPONSIVE DURING BEGINNING OF THE SHIFT. COMFORT MEASURES PROVIDED. PATIENT ON 02/14/192157, MOTHER AND SON NOTIFIED. PRIMARY PHYSICIANS AND CONSULTATIONS ALSO NOTIFIED. POST-MORTEM CARE COMPLETED, SECURITY NOTIFIED.
--- NOTE | 2019-02-15 01:03 | NUR ---
PATIENT TRANSFERRED FROM UNIT BY SECURITY.
--- NOTE | 2019-02-21 15:36 | HC ---
[facility] [address] [place] [address] CONSULTATION Name: BELL AIKEN Room #: 240-P [facility] IN M.R.#: [id number] Admission: 01/29/19 Attend Phys: Adrián Ferrer MD Discharge: 02/14/19 Date of : 62 Report #: [id number] THIS REPORT FOR: //name// CC: Daniel Ferrer REQUESTING PHYSICIAN: Dr. Abel. CHIEF COMPLAINT: End-stage liver disease. HISTORY OF PRESENT ILLNESS: The patient is a 58-year-old male who had presented to [facility] initially on 01/29/2019. At such time, he presented with altered mental status. He had a known history of end-stage liver disease, was presented from a nursing facility; was jaundiced, not responding to stimuli. Subsequently, had to be intubated for airway protection. The patient had subsequently been extubated; however, his hepatic encephalopathy has continued. Ammonia was recently 168, down to 93 today. He also was treated for urinary tract infection. He is status post TIPS procedure. Additionally, he has multiple other comorbidities. The patient has not had significant improvement in his overall mental status as stated previously, and has had a continuous decline overall. He is not responsive at this time to any kind of stimuli. PAST MEDICAL HISTORY: Significant for end-stage liver disease. Additionally, he has atrial fibrillation, type 2 diabetes, anemia, history of hepatic encephalopathy. Additionally hepatitis C, esophageal varices, portal hypertension. PAST SURGICAL HISTORY: Bilateral hernia repair. SOCIAL HISTORY: Mother is surrogate decision maker; I have attempted to contact this evening, but received no message back regarding this contact. ALLERGIES: INCLUDE NSAIDS, ACETAMINOPHEN, IBUPROFEN. CODE STATUS: Currently listed as DNR. FAMILY HISTORY: Noncontributory. MEDICATIONS: Include Lantus, digoxin, Humalog, metoprolol, lactulose, Cardizem, magnesium, Solu-Medrol, rifaximin, famotidine. REVIEW OF SYSTEMS: Unable to obtain due to present medical condition. PHYSICAL EXAMINATION: VITAL SIGNS: Included blood pressure 118/60, temp 36.5, pulse 92, respirations 16, oxygen 97%. [facility] [address] [place] [address] CONSULTATION Name: BELL AIKEN Room #: [address] [place] [address] [place] [facility].#: [id number] Admission: 01/29/19 Attend Phys: Adrián Ferrer MD Discharge: 02/14/19 Date of : 62 Report #: [id number] GENERAL: The patient is, again, not alert. Attention level is poor. HEENT: He does have some scleral icterus noted. No significant conjunctival injection. Ocular exam was limited at this time. CARDIOVASCULAR: Irregular rate and rhythm, bradycardic currently. RESPIRATORY: Diffuse rales noted of coarse nature. ABDOMEN: Appears to be soft, not significantly distended. No grimacing to palpation. EXTREMITIES: He has diffuse warmth, distal extremities. LABORATORY DATA: These include white blood cell 16.2, hemoglobin 12.8, platelets were 63. Sodium 150, creatinine 1.1. ASSESSMENT AND PLAN: 1. End-stage liver disease. Again, I have discussed with nursing staff. At this time, it appears the patient's family is planning on meeting with regards to palliative care tomorrow at 3:00 to 4:00. I will attempt to be present, if possible, for this meeting to discuss further care options. Likely, the patient is to need inpatient palliative care, hospice house potentially if the patient is stable enough. However, he has had significant overall decline in his condition and may not be stable enough for transfer. 2. Hypernatremia. Again, overall the patient has had a significant decline. I believe that this is coupled with other factors. They know that the patient has a poor life expectancy as noted by GI. At this time, I do feel the patient is a good candidate for palliative care type options. Thank you very much for this consultation. <ELECTRONICALLY SIGNED> By: Kenrick Ferguson DO 02/21/19 1536 2209 0001 Kenrick Ferguson DO /nt
== END 2019-02-14 21:58 | DRG 870 ==
LOC: ER 16:05 → ICU 18:17 → EROBS 18:17 → ICU 19:34 → 3W 02-10 16:14 → ICU 02-11 21:31
PROVIDERS: Emergency Medicine; Hospitalist; Internal Medicine; Internal Medicine Gastroenterology; Internal Medicine Nephrology; Internal Medicine Pulmonary Disease; Nurse Practitioner; Pediatrics; ADMIT Internal Medicine
PROC: 0BH17EZ Insertion of Endotracheal Airway into Trachea, Via Natural or Artificial Opening (ICD-10-PCS; principal; 2019-01-29)
PROC: 02HV33Z Insertion of Infusion Device into Superior Vena Cava, Percutaneous Approach (ICD-10-PCS; principal; 2019-01-29)
PROC: 5A1955Z Respiratory Ventilation, Greater than 96 Consecutive Hours (ICD-10-PCS; principal; 2019-01-29)
DX: A41.9 Sepsis, unspecified organism (principal); J96.01 Acute respiratory failure with hypoxia; J96.02 Acute respiratory failure with hypercapnia; N17.0 Acute kidney failure with tubular necrosis; E87.1 Hypo-osmolality and hyponatremia; N39.0 Urinary tract infection, site not specified; E44.0 Moderate protein-calorie malnutrition; E72.20 Disorder of urea cycle metabolism, unspecified; L03.115 Cellulitis of right lower limb; I48.92 Unspecified atrial flutter; I47.1 Supraventricular tachycardia; K92.2 Gastrointestinal hemorrhage, unspecified; D68.9 Coagulation defect, unspecified; K76.6 Portal hypertension; K72.90 Hepatic failure, unspecified without coma; I48.91 Unspecified atrial fibrillation; I50.9 Heart failure, unspecified; I25.5 Ischemic cardiomyopathy; Z66 Do not resuscitate; F10.10 Alcohol abuse, uncomplicated; D53.9 Nutritional anemia, unspecified; K70.11 Alcoholic hepatitis with ascites; R59.0 Localized enlarged lymph nodes; J94.1 Fibrothorax; E11.65 Type 2 diabetes mellitus with hyperglycemia; K70.31 Alcoholic cirrhosis of liver with ascites; Z51.5 Encounter for palliative care; D69.6 Thrombocytopenia, unspecified; I95.9 Hypotension, unspecified; E87.8 Other disorders of electrolyte and fluid balance, not elsewhere classified; Z86.19 Personal history of other infectious and parasitic diseases; Z91.14 Patient's other noncompliance with medication regimen; Z95.810 Presence of automatic (implantable) cardiac defibrillator; Z88.6 Allergy status to analgesic agent; Z88.8 Allergy status to other drugs, medicaments and biological substances
CPT/HCPCS: 10078; 10203; 10779